=== PATIENT | female | born 1980 | race Caucasian/White ===

== ENCOUNTER 2019-12-09 08:17 | Outpatient (CLI) | payer OTHER, SELFPAY ==
--- NOTE | 2020-01-02 00:54 | WPDHOMESLEEP ---
Sleep Study - Home Unattended Date of Study: 12/09/19 Ordering Provider: Cheryl Cheng MD Interpreting Physician: Cheryl Cheng MD Home Sleep Study Type: Apnea Link Air Height: 1.6 m Weight: 107.501 kg Body Mass Index: 42.0 Neck Circumference (inches): 15 [place]: 12 Reason for Sleep Study Hypersomnolence, poor quality sleep, loud snoring Sleep History Armand Henderson is a 39 year-old female with a history of loud snoring. she wakes up between 2 and 4 times per night. Her sleep is restless. During the daytime she has difficulty concentrating due to lack of good sleep. This all started about 7 years ago. She wakes up throughout the night including in the digital developer hours. She rarely awakens at night with heartburn, belching or coughing. She occasionally awakens from sleep feeling short of breath. She frequently has trouble sleeping with a cold. She rarely gasps for breath at night. She occasionally has breathing problems at night observed by others. She occasionally sweats excessively at night. She does not notice her heart pounding or beating irregularly at night. She occasionally falls asleep during the day but never involuntarily. She does not fall asleep while driving. She does not have loss of muscle tone with strong emotion. She rarely has daytime difficulties due to excessive sleepiness. 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 She rarely feels paralyzed on waking or falling asleep. She rarely has vivid dreamlike scenes upon awakening or falling asleep. She is not afraid to go to sleep. She occasionally has nightmares, occasionally remembers her dreams, has racing thoughts, feelings of sadness depression and anxiety. She does not have muscular tension. She constantly notices parts of her body jerking and she frequently kicks at night. She rarely has crawling and aching feelings in her legs at night and rarely has leg pain at night. She occasionally has morning jaw pain. She frequently grinds her teeth during sleep. she never is bothered by pain during the day and is not awakened by pain at night. She rarely wakes up feeling stiff in the morning with sore achy muscles or pain in the neck and spine. Normal bedtime is 9:00 p.m. falling asleep within 15-20 minutes. She wakes 2-4 times at night and stays awake for 10 minutes or so when she wakes up. While awake she will go to the bathroom, check on her children or look at her telephone. She wakes in the morning between 5:00 a.m. and 6:30 a.m.. On weekends she goes to bed by 11:00 p.m. and wakes by 730 in the morning. On weekends she also has alcoholic beverages or a dessert. She does not take naps. A short nap is not refreshing. She is usually drowsy in the morning for 1 hour or longer. She feels better in the morning compared to other times of day. Habits: She smoked years ago. She does consume caffeine and drinks 3-5 alcoholic beverages on the weekend only. No recreational drugs. FORMERLY [facility] Past Medical History Medical History Anxiety Asthma Fractures GERD (gastroesophageal reflux disease) Healthy adult Hypersomnolence Hypothyroidism Major depressive disorder Moderate persistent asthma Surgical History Surgical History H/O dilation and curettage No history of previous surgery Family History Family History Mother Diabetes mellitus, Onset Age: 68 Hypertension, Onset Age: 68 Cerebrovascular accident, Onset Age: 68 Father Family history of malignant neoplasm of stomach, Onset Age: 65 Other Family history of malignant neoplasm Social History Social History Smoking status: Former smoker Smoking end date: 02/06/07 Alcohol intake: current Substance use: never Medications Home Medications Medica
[2020-01-02 01:16] VITALS: BMI 42.0
== END 2019-12-09 08:18 | disposition home or self-care (01) ==
LOC: ANHCSM 08:29
PROVIDERS: PCP Internal Medicine; Visit Provider Internal Medicine Critical Care Medicine
DX: G47.33 Obstructive sleep apnea (adult) (pediatric) (principal)
CPT/HCPCS: 95806

== ENCOUNTER 2020-01-30 10:58 | Emergency (ER) | payer OTHER, SELFPAY ==
[2020-01-30] MEDS: EPINEPHrine HCL INJ 1 MG/ML AMPUL IM (11:03)
[2020-01-30 11:08] VITALS: BP 141/124; PULSE 114; RESP 18; TEMP 37.5; O2SAT 96
[2020-01-30] MEDS: diphenhydrAMINE HCl CAP 25 MG CAPSULE 50 MG PO (11:08)
--- NOTE | 2020-01-30 11:12 | ED.ALLEREA ---
HPI - Allergic Reaction General Stated complaint: alllergric reaction Time Seen by Provider: 01/30/20 10:58 Source: patient and RN notes reviewed Mode of arrival: ambulatory Limitations: no limitations History of Present Illness HPI narrative: 39-year-old female presents concern for allergic reaction. Reports just prior to arrival she noticed trouble breathing, swollen lips, swollen tongue with acute onset. She is unsure of any triggering food, medicine, substance. She does not have history of allergies. Reports swollen eyes, blurry vision. MD complaint: allergic reaction Exposure: unknown Related Data Home Medications Medication Instructions Recorded Confirmed duloxetine 60 mg capsule,delayed 60 mg PO DAILY 12/31/18 01/09/20 release sprinkle duloxetine 30 mg capsule,delayed 30 mg PO DAILY 11/20/19 01/09/20 release bupropion HCl 150 mg tablet,12 hr 150 mg PO DAILY 01/09/20 01/09/20 sustained-release Allergies Allergy/AdvReac Type Severity Reaction Status Date / Time latex Allergy Intermediate HIVES AND Verified 07/31/19 09:59 ITCHING Review of Systems Review of Systems: ROS unobtainable: Yes unobtainable due to medical condition PMFSH Past Medical History Medical History Anxiety Asthma Fractures GERD (gastroesophageal reflux disease) Healthy adult Hypersomnolence Hypothyroidism Major depressive disorder Moderate persistent asthma Surgical History Surgical History H/O dilation and curettage No history of previous surgery Family History Family History Mother Diabetes mellitus, Onset Age: 68 Hypertension, Onset Age: 68 Cerebrovascular accident, Onset Age: 68 Father Family history of malignant neoplasm of stomach, Onset Age: 65 Other Family history of malignant neoplasm Social History Social History Smoking status: Former smoker Smoking end date: 02/06/07 Alcohol intake: current Substance use: never Comments At time of signature, agree with nursing past medical, surgical, social and family history. There is no relevant family history pertinent to the presenting complaint Exam Narrative: Exam Narrative: GENERAL: in acute distress. HEAD: Normocephalic, EYES: PERRLA, conjunctivae clear, right lower lid edema ENT: Nares clear. Mucous membranes moist. Lip edema, tongue edema, uvular edema NECK: Supple. CHEST: Mildly, tachypneic clear to auscultation. HEART: Fast rate, cap refill less than 3 seconds normal peripheral pulses. SKIN: Warm, dry NEURO: Alert and oriented x3. PSYCH: Anxious, tearful Course Course Emergency Course: Patient is aware, understands and agrees to transfer to emergency department. Portions of this record may have been created with voice recognition software Vital Signs Vital signs: Reviewed. Emergency situation, patient educated on blood pressure Transfer Transfered to: [place] Transportation: ALS Transfer rationale: Allergic reaction Accepting physician: Dr. Nava MDM - Allergic Reaction MDM Narrative Medical decision making narrative: Patient's exam warrants further evaluation in the emergency department. Patient transferred via EMS to [facility]. Differential Diagnosis Differential diagnosis: Likely anaphylaxis, allergic reaction and angioedema Critical Care Time Critical Care Time Critical Care Time: Yes Total Critical Care Time: 15 Discharge Plan Discharge Clinical Impression: Allergic reaction Qualifiers: Encounter type: initial encounter Qualified Code(s): T78.40XA - Allergy, unspecified, initial encounter Patient Disposition: Acute Care Hospital Condition: Stable Prescriptions: No Action duloxetine 60 mg capsule, delayed rel sprinkle 60 mg PO DAILY RF: 0
== END 2020-01-30 11:11 | disposition short-term general hospital (02) ==
PROVIDERS: Emergency Provider Nurse Practitioner
DX: T78.3XXA Angioneurotic edema, initial encounter (principal); R22.0 Localized swelling, mass and lump, head; H02.842 Edema of right lower eyelid; T78.40XA Allergy, unspecified, initial encounter; X58.XXXA Exposure to other specified factors, initial encounter; Z87.891 Personal history of nicotine dependence; J45.909 Unspecified asthma, uncomplicated; K21.9 Gastro-esophageal reflux disease without esophagitis; E03.9 Hypothyroidism, unspecified; F41.9 Anxiety disorder, unspecified; F32.9 Major depressive disorder, single episode, unspecified
CPT/HCPCS: 96372; 99215; A9270; G0463; J0171

== ENCOUNTER 2020-01-30 11:32 | Emergency (ER) | payer OTHER, SELFPAY ==
[2020-01-30 11:30] VITALS: BP 153/91; PULSE 99; RESP 15; TEMP 36.8; O2SAT 100
--- NOTE | 2020-01-30 11:58 | ED.ALLEREA ---
HPI - Allergic Reaction General Chief complaint: Allergic Reaction <Padmini Hendricks PA-C - Last Filed: 01/30/20 14:19> Stated complaint: Allergic Reaction <TARIK Brandon Last Filed: 01/30/20 14:19> Time Seen by Provider: 01/30/20 11:41 <TARIK Brandon Last Filed: 01/30/20 14:19> Source: patient <TARIK Brandon Last Filed: 01/30/20 14:19> Mode of arrival: EMS <TARIK Brandon Last Filed: 01/30/20 14:19> Limitations: no limitations <TARIK Brandon Last Filed: 01/30/20 14:19> History of Present Illness HPI narrative: This is a 39-year-old female that presents the emergency department for allergic reaction. Reports she had just gotten home from the grocery store. Does not report any new foods, soaps, lotions, or medications. Reports she started to note itching of her eyes. Her hands then started to itch. She noticed her eyes were swollen and red. She started to feel like she was having an asthma flare so took her albuterol and inhaled steroid with little relief. She then felt like her lips and tongue were starting to get swollen so reported to urgent care. Was given epinephrine and Benadryl and sent to the ED for further evaluation and monitoring. Reports she is feeling much better now. Swelling is improving and she does not feel short of breath. <TARIK Brandon Last Filed: 01/30/20 14:19> Related Data Home medications: Home Medications Medication Instructions Recorded Confirmed duloxetine 60 mg capsule,delayed 60 mg PO DAILY 12/31/18 01/09/20 release sprinkle duloxetine 30 mg capsule,delayed 30 mg PO DAILY 11/20/19 01/09/20 release bupropion HCl 150 mg tablet,12 hr 150 mg PO DAILY 01/09/20 01/09/20 sustained-release <TARIK Brandon Last Filed: 01/30/20 14:19> Allergies/adverse reactions: Allergies Allergy/AdvReac Type Severity Reaction Status Date / Time latex Allergy Intermediate HIVES AND Verified 07/31/19 09:59 ITCHING <Padmini Hendricks PA-C - Last Filed: 01/30/20 14:19> Review of Systems Review of Systems: Narrative: CONSTITUTIONAL: Denies fever EYES: Reports redness and swelling ENT: Reports rhinorrhea, congestion CARDIOVASCULAR: Reports edema. RESPIRATORY: Denies dyspnea. SKIN: Reports rash and itching. <Padmini Hendricks PA-C - Last Filed: 01/30/20 14:19> All systems reviewed & are unremarkable except as noted in HPI and below <Padmini Hendricks PA-C - Last Filed: 01/30/20 14:19> PMFSH Past Medical History Medical History: Medical History Anxiety Asthma Fractures GERD (gastroesophageal reflux disease) Healthy adult Hypersomnolence Hypothyroidism Major depressive disorder Moderate persistent asthma <Padmini Hendricks PA-C - Last Filed: 01/30/20 14:19> Surgical History Surgical History: Surgical History H/O dilation and curettage No history of previous surgery <Padmini Hendricks PA-C - Last Filed: 01/30/20 14:19> Family History Family History: Family History Mother Diabetes mellitus, Onset Age: 68 Hypertension, Onset Age: 68 Cerebrovascular accident, Onset Age: 68 Father Family history of malignant neoplasm of stomach, Onset Age: 65 Other Family history of malignant neoplasm <Padmini Hendricks PA-C - Last Filed: 01/30/20 14:19> Social History Social History: Social History Smoking status: Former smoker Smoking end date: 02/06/07 Alcohol intake: current Substance use: never Gender identity (if verbalized by the patient): Female <TARIK Brandon Last Filed: 01/30/20 14:19> Exam Narrative: Exam Narrative: GENERAL: Well-appearing, well-nourished, and in no acute distr
[2020-01-30] MEDS: FAMOTIDINE 20 MG/2 ML VIAL IV PUSH (12:21)
[2020-01-30] MEDS: methylPREDNISolone SOD SUCC 125 MG VIAL IV PUSH (12:21)
[2020-01-30 13:40] VITALS: BP 148/77; PULSE 90; RESP 16; O2SAT 99
== END 2020-01-30 14:33 | disposition home or self-care (01) ==
PROVIDERS: Emergency Provider General Practice; PCP Internal Medicine
DX: T78.2XXA Anaphylactic shock, unspecified, initial encounter (principal); T78.3XXA Angioneurotic edema, initial encounter; K21.9 Gastro-esophageal reflux disease without esophagitis; E03.9 Hypothyroidism, unspecified; J45.30 Mild persistent asthma, uncomplicated; F41.9 Anxiety disorder, unspecified; F32.9 Major depressive disorder, single episode, unspecified; Z87.891 Personal history of nicotine dependence
CPT/HCPCS: 96374; 96375; 99284; J2930

== ENCOUNTER 2020-02-21 10:19 | Emergency (ER) | payer OTHER, SELFPAY ==
[2020-02-21] VITALS (15 sets, daily range): BP systolic 123–153; BP diastolic 76–86; PULSE 78–112; RESP 8–33; TEMP 36.6; O2SAT 100
--- NOTE | 2020-02-21 11:30 | PC.NURSE ---
received report from Cat RN. patient here with allergic reaction. has facial swelling. c/o some difficulty breathing on arrival. states she had similar episode on 01/30/20. was seen in this ED. referred to her PCP for referral for peer support specialist. just saw here PCP last week. has appointment with peer support specialist in March. unknown cause of allergic reaction. no dyspnea noted now. no tongue swelling. does have mild facial swelling noted around eyes. patient appears restless. provider also in room. patient states she is also having rectal pain. hx of anal fissure. provider aware. patient to restroom per her request.
[2020-02-21] MEDS: diphenhydrAMINE HCl INJ 50 MG/ML VIAL 25 MG IV PUSH (11:43)
[2020-02-21] MEDS: FAMOTIDINE 20 MG/2 ML VIAL IV PUSH (11:43)
[2020-02-21] MEDS: methylPREDNISolone SOD SUCC 125 MG VIAL IV PUSH (11:43)
--- NOTE | 2020-02-21 11:45 | PC.NURSE ---
patient medicated as ordered. on warp placer. has call light in reach. asking for either treatment now for anal fissure and rectal pain or for prescription. cannot remember what she was given previously. provider is aware. will continue to monitor after meds for allergic reaction.
--- NOTE | 2020-02-21 13:06 | PC.NURSE ---
resting on stretcher. appears comfortable. facial swelling resolved. on library monitor. waiting for further orders from provider vs disposition.
--- NOTE | 2020-02-21 13:56 | PC.NURSE ---
feels better. facial swelling resolved. provider discussed OTC treatment for anal fissure with patient. ready for discharge.
--- NOTE | 2020-02-21 14:15 | PC.NURSE ---
provider at bedside.
--- NOTE | 2020-02-21 20:45 | ED.GENADULT ---
HPI - General Adult General Chief complaint: Allergic Reaction Stated complaint: ALLERGIC REACTION Time Seen by Provider: 02/21/20 11:01 Source: patient Mode of arrival: ambulatory Limitations: no limitations History of Present Illness HPI narrative: Patient presents with chief complaint of evaluation for facial and throat swelling that began just prior to arrival. Patient states that she presented to this emergency department in the past due to an unknown reaction and was prescribed EpiPen and so she used it prior to coming to the emergency department. Patient states she does notice some improvement in her symptoms. but feels that they may be slowly coming back. 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 Patient denies chest pain or shortness of breath at this time. Patient reports feeling some swelling to her face and itching to her throat. Patient states she has evaluated her environment and cannot figure out the cause of her symptoms. Related Data Home Medications Medication Instructions Recorded Confirmed albuterol sulfate [Ventolin HFA] INHALATION 02/21/20 bupropion HCl mg PO 02/21/20 duloxetine mg PO 02/21/20 duloxetine mg PO 02/21/20 epinephrine 02/21/20 fluticasone propion-salmeterol inh INHALATION 02/21/20 phentermine mg 02/21/20 Allergies Allergy/AdvReac Type Severity Reaction Status Date / Time latex Allergy Intermediate HIVES AND Verified 02/21/20 12:05 ITCHING Review of Systems Review of Systems: Narrative: CONSTITUTIONAL: Denies fever, chills, or sweats. EYES: Denies visual changes, redness, or discharge. ENT: Reports throat swelling denies rhinorrhea, congestion, or otalgia. CARDIOVASCULAR: Denies chest pain, palpitations, or edema. RESPIRATORY: Denies cough or dyspnea. GASTROINTESTINAL: Denies abdominal pain, nausea, vomiting, or diarrhea. GENITOURINARY: Denies dysuria or hematuria. SKIN: Reports facial swelling denies rash or itching. MUSCULOSKELETAL: Denies back pain, joint pain, or myalgia. NEUROLOGIC: Denies headache, numbness, dizziness, or weakness. PSYCHIATRIC: Denies anxiety or depression. FORMERLY [facility], [facility] Past Medical History Medical History Anxiety Asthma Fractures GERD (gastroesophageal reflux disease) Healthy adult Hypersomnolence Hypothyroidism Major depressive disorder Moderate persistent asthma Surgical History Surgical History H/O dilation and curettage No history of previous surgery Family History Family History Mother Diabetes mellitus, Onset Age: 68 Hypertension, Onset Age: 68 Cerebrovascular accident, Onset Age: 68 Father Family history of malignant neoplasm of stomach, Onset Age: 65 Other Family history of malignant neoplasm Social History Social History Smoking status: Former smoker Smoking end date: 02/06/07 Alcohol intake: current Substance use: never Gender identity (if verbalized by the patient): Female Exam Narrative: Exam Narrative: GENERAL: Well-appearing, well-nourished, and in no acute distress. HEAD: Normocephalic, atraumatic. There is swelling of patient's face especially around her lips and eyes. EYES: PERRLA and EOMI. ENT: Nares clear, no rhinorrhea or epistaxis. Mucous membranes moist. Oropharynx without tonsillar hypertrophy exudate or other lesions. Bilateral TMs pearly garcia nonbulging. Patient is able to speak and swallow without difficulty. NECK: Supple. No adenopathy or masses. CHEST: Clear to auscultation. No respiratory distress. No wheezes rales or rhonchi HEART: Regular rate and rhythm. EXTREMITIES: Normal range of motion. No edema. SKIN: Warm, dry, no rash. DEMETRIUS
== END 2020-02-21 14:26 | disposition home or self-care (01) ==
PROVIDERS: Emergency Provider Emergency Medicine; PCP Internal Medicine
DX: T78.40XA Allergy, unspecified, initial encounter (principal); J45.40 Moderate persistent asthma, uncomplicated; K21.9 Gastro-esophageal reflux disease without esophagitis; E03.9 Hypothyroidism, unspecified; F32.9 Major depressive disorder, single episode, unspecified; F41.9 Anxiety disorder, unspecified; Z87.891 Personal history of nicotine dependence
CPT/HCPCS: 96374; 96375; 99284; J1200; J2930

== ENCOUNTER 2020-11-04 11:12 | Outpatient (CLI) | payer OTHER, SELFPAY ==
--- NOTE | ~2020-11-04 | XR_ITS ---
EXAMINATION: XR chest 2V EXAM DATE: 11/04/2020 11:23 INDICATION: R06.02 - Shortness of breath, recent bronchitis. TECHNIQUE: Frontal and lateral projections of the chest obtained and reviewed. Comparison is made to prior examination from 01/26/2019. FINDINGS: The lungs are clear. There are no pleural effusions. The cardiomediastinal silhouette is within normal limits. There is no pneumothorax suspected. The bones and soft tissues are unremarkab le. IMPRESSION: No acute cardiopulmonary findings. Reviewed, dictated and finalized at location A.
== END 2020-11-04 11:13 | disposition home or self-care (01) ==
LOC: ANHIMG 11:15
PROVIDERS: PCP Internal Medicine; Visit Provider Clinical Nurse Specialist
DX: R06.02 Shortness of breath (principal)
CPT/HCPCS: 71046

== ENCOUNTER 2021-01-25 08:09 | Outpatient (CLI) | payer OTHER, SELFPAY ==
--- NOTE | ~2021-01-25 | CT_ITS ---
EXAMINATION: CT sinus wo con DATE: 01/25/2021 08:24 INDICATION: Hypertrophy of the nasal terminates. Chronic sinusitis. TECHNIQUE: Computed tomography (CT) of the paranasal sinuses was performed without intravenous contra st. The dose-length product was 294.13 mGy-cm. Automated exposure control and iterative reconstructio n technique were employed. COMPARISON: No prior studies for comparison. FINDINGS: There is mucosal thickening of the frontal, ethmoid, sphenoid and maxillary sinuses. There is mild mucoperiosteal reaction in the maxillary sinuses. Rightward nasal septal deviation. Ostiomeat al units are occluded by soft tissue. Mastoids are pneumatized. IMPRESSION: 1. Moderate chronic pansinusitis. Reviewed, dictated and finalized at location A. UND [employer]
== END 2021-01-25 08:10 | disposition home or self-care (01) ==
LOC: ANHIMG 08:11
PROVIDERS: PCP Internal Medicine; Visit Provider Otolaryngology
DX: J34.3 Hypertrophy of nasal turbinates (principal); J32.4 Chronic pansinusitis; J34.2 Deviated nasal septum; R09.82 Postnasal drip; R09.81 Nasal congestion; R51.9 Headache, unspecified; R44.8 Other symptoms and signs involving general sensations and perceptions
CPT/HCPCS: 70486

== ENCOUNTER 2021-02-18 08:29 | Outpatient (CLI) | payer OTHER, SELFPAY ==
[2021-02-18 08:55] LABS: Basophils Percent Auto 0.3 % (0.2-1.2); Eosinophils Absolute Auto 0.1 K/mm3 (0-0.3); Eosinophils Percent Auto 1.7 % (0-4.4); Hematocrit 41.7 % (37.0-47.0); Hemoglobin 13.9 g/dL (12.0-15.0); Immature Granulocyte Absolute 0.02 K/mm3 (0.00-0.031); Immature Granulocyte Percent A 0.3 % (0-0.5); Lymphocytes Absolute Auto 1.58 K/mm3 (0.9-3.2); Lymphocytes Percent Auto 22.6 % (18.3-44.2); Mean Corpuscular HGB Conc 33.3 g/dl (32-36); Mean Corpuscular Volume 90.1 fl (80-100); Mean Platelet Volume 8.9 fl (7.4-10.4); Monocytes Absolute Auto 0.4 K/mm3 (0.1-0.6); Monocytes Percent Auto 5.4 % (2.6-8.5); Neutrophils Absolute Auto 4.9 K/mm3 (1.3-6.7); Neutrophils Percent Auto 69.7 % (45.5-73.1); Platelet Count Result 295 k/mm3 (150-375); Red Blood Count 4.63 M/mm3 (4.2-5.4); Red Cell Distribution Width 13.7 % (11.5-14.5)
[2021-02-18 09:09] LABS: Alanine Aminotransferase 23 U/L (4-35); Albumin Level 4.4 g/dL (3.5-5.1); Alkaline Phosphatase 105 U/L (38-126); Anion Gap 7 mmol/L (8-16); Aspartate Amino Transferase 29 U/L (14-36); Bilirubin,Total 0.7 mg/dL (0.2-1.3); Blood Urea Nitrogen 12 mg/dL (7-17); Calcium 9.1 mg/dL (8.4-10.2); Carbon Dioxide 28 mmol/L (22-30); Chloride 101 mmol/L (98-107); Cholesterol 208 mg/dL (0-200); Estimated Glomerular Filt Rate > 60; Glucose 99 mg/dL (65-110); HDL Direct 63 mg/dL; Sodium 136 mmol/L (137-145); Triglycerides 123 mg/dL (<150)
[2021-02-18 09:22] LABS: LDL Cholesterol Direct 104 mg/dL
[2021-02-18 10:31] LABS: Vitamin D 25 Hydroxy 34.9 ng/mL
[2021-02-18 12:19] LABS: Erythrocyte Sedimentation Rate 14 mm/hr (0-20)
== END 2021-02-18 08:30 | disposition home or self-care (01) ==
LOC: ANHLAB 08:33
PROVIDERS: PCP Internal Medicine; Visit Provider Clinical Nurse Specialist
DX: R09.89 Other specified symptoms and signs involving the circulatory and respiratory systems (principal); J45.40 Moderate persistent asthma, uncomplicated; Z13.220 Encounter for screening for lipoid disorders; E55.9 Vitamin D deficiency, unspecified
CPT/HCPCS: 36415; 80053; 80061; 82306; 84443; 85025; 85652; 86038

== ENCOUNTER 2021-03-19 00:46 | Day surgery (SDC) | payer OTHER, SELFPAY ==
[2021-03-15 09:38] VITALS: BMI 41.6
--- NOTE | 2021-03-15 09:49 | PC.NURSE ---
Report to the Outpatient Waiting Room, entrance under the green pavilion located off [facility], at time 0830 on date 03/19/21. OR Time: 1030. - You will be asked a series of questions to screen for COVID 19 for your protection. - A mask is required within the hospital. - No visitors are allowed at this time. Preoperative COVID Testing Requirements: TO EMAIL COPY OF COVID CARD No COVID Test needed if: (proof is required; if not received patient will have Rapid Test prior to entry) - Patient has received COVID Vaccine at least 14 days prior to procedure date or - Patient has positive COVID test result within last 90 days of surgery date. COVID Test needed if above criteria is not met Patients may have clear liquids (water, carbonated beverages, clear teas, apple juice) until 3 hours prior to surgery with a maximum of 20 ounces. - No food from midnight until time of surgery Take the following medications with a SIP of water the morning of surgery: INHALERS, BUPROPION, DULOXETINE Medications to discontinue per physician: N/A Date to take last dose: N/A Please no make-up, nail icelandic, hairspray, perfume, deodorant, or body powder the day of surgery. No jewelry (including any body piercings) or valuables the day of surgery, leave them at home. Please take a shower or bath the night before, or the morning of, surgery with an antibacterial soap. Wear comfortable, loose fitting clothing. - Jewelry must be removed prior to entering the operating room. Rings and piercings that are not removed may be cut off. - The hospital will not accept responsibility for valuables. - Please leave all valuables, including medications, at home the day of surgery. If you are going home after surgery, a licensed charter coach driver must drive you home. - NO public transportation without another adult. - We recommend that an adult stay with you for 24 hours following discharge. - We also recommend that you do not drive, make important decision, drink alcoholic beverages, or take any drugs that were not prescribed by your health care provider for at least 24 hours after your discharge time. Follow any additional instructions given to you from your surgeon. Telephone instructions given to BRINA ESCAMILLA and asked if any additional questions and then verbalized understanding. Patient advised to call surgeon office or pre surgery nurse liaison [phone] if any additional questions.
--- NOTE | 2021-03-18 12:36 | PM.IMHP ---
H&P: HPI History of Present Illness Date/Time: 03/18/21 12:36 Chief Complaint: Nasal obstruction nasal congestion septal deviation turbinate hypertrophy chronic sinusitis Narrative: patient presents for planned surgical procedures. No change in symptoms no change in medical history. Review of Systems Constitutional: Constitutional: Denies fatigue, Denies fever(s) and Denies lethargy Eyes: Eyes: Denies blurry vision and Denies change in vision ENT: Reports as per HPI Cardiovascular: Cardiovascular: Denies chest pain Respiratory: Respiratory: Denies cough Endocrine: Endocrine: Denies fatigue Hematologic/Lymphatic: Hematologic/Lymphatic: Denies easy bleeding, Denies easy bruising and Denies lymphadenopathy Allergic/Immunologic: Allergic/Immunologic: Denies seasonal rhinorrhea [facility] Past Medical History Medical History Anxiety Asthma Fractures GERD (gastroesophageal reflux disease) Healthy adult Hypersomnolence Hypothyroidism Major depressive disorder Moderate persistent asthma Surgical History Surgical History H/O dilation and curettage No history of previous surgery Family History Family History Mother Diabetes mellitus, Onset Age: 68 Hypertension, Onset Age: 68 Cerebrovascular accident, Onset Age: 68 Father Family history of malignant neoplasm of stomach, Onset Age: 65 Other Family history of malignant neoplasm Social History Social History (Updated 02/24/21 @ 14:26 by Adrianna Mills) Social History: Caffeine-Coffee daily Years smoked: 10 Smoking status: Former smoker Tobacco type: cigarettes and e-cigarettes/vaping Smoking end date: 02/06/11 Additional smoking assessment comments: QUIT VAPING 2018 Alcohol intake: current Alcohol use details: 3/MONTH Substance use: never Substance use type: does not use Gender identity (if verbalized by the patient): Female Spiritual care concerns: No Meds Home Medications and Allergies Home Medications Medication Instructions Recorded Confirmed Type inhalational spacing device #1 each 07/31/19 01/05/21 Rx duloxetine 30 mg PO DAILY 02/21/20 03/15/21 History duloxetine 60 mg PO DAILY 02/21/20 03/15/21 History epinephrine [EpiPen 2-Samy] 0.3 mg IM ONCE #1 ea 02/21/20 03/15/21 Rx famotidine [Pepcid] 20 mg PO BID #20 tablet 02/21/20 03/15/21 Rx fexofenadine 60 mg tablet 180 mg PO DAILY 08/06/20 03/15/21 History albuterol sulfate 90 mcg/actuation See Rx Instructions .ROUTE 09/14/20 03/15/21 Rx aerosol inhaler .COMPLEX #54 gram bupropion HCl 100 mg tablet,12 hr 100 mg PO DAILY 11/18/20 03/15/21 History sustained-release linaclotide 145 mcg capsule 145 mcg PO DAILY #90 cap 02/24/21 03/15/21 Rx liraglutide (weight loss) 3 mg/0.5 3 mg SUBCUT DAILY #15 ml 02/24/21 03/15/21 Rx mL (18 mg/3 mL) subcut pen injector fluticasone propion-salmeterol 2 puff INHALATION BID 03/15/21 03/15/21 History [Advair HFA] Allergies Allergy/AdvReac Type Severity Reaction Status Date / Time NSAIDS (Non-Steroidal Allergy Unknown Verified 03/17/21 15:33 Anti-Inflamma Exam Const: General: cooperative, healthy appearing, comfortable, well developed and alert HENMT: Head: normal to inspection, normocephalic and atraumatic Ears: hearing grossly normal bilaterally, external ears normal, TM's normal bilaterally and EAC's normal General nose exam: Normal external nose present, Normal nares present and Other nasal findings present ( Septal deviation turbinate hypertrophy) Face and sinus: normal facial exam Mouth: Yes Normal oral and palatal mucosa present, Yes lip normal, Yes tongue normal, Yes oropharynx normal and Yes moist mucous membranes Teeth and gingiva: dentition normal and gingiva normal Throat: posterior oropharynx normal, tonsils normal an
--- NOTE | 2021-03-18 13:12 | WPDANESEPPF ---
Anes - Initial Pre Proc Eval Procedure: Operation Date: 03/19/21 10:30 Proposed Procedures p Image Guided Endoscopic Bilateral Maxillary Antrostomy, Bilateral Total Ethmoidectomy, Bilateral Sphenoidotomy, Bilateral Frontal Sinusotomy, Bilateral Inferior Turbinectomy with Outfracture, - David Fay MD s Endoscopic Septoplasty - David Fay MD Date/Time: 03/18/21 13:12 Surgeon: David Fay MD Pre Op Diagnosis: chronic sinusitis Patient Data Age: 40 Gender: F Height: 1.61 m Weight: 108.41 kg Allergies Allergy/AdvReac Type Severity Reaction Status Date / Time NSAIDS (Non-Steroidal Allergy Unknown Verified 03/19/21 09:30 Anti-Inflamma Home Medications Medication Instructions Recorded Confirmed Type inhalational spacing device #1 each 07/31/19 01/05/21 Rx duloxetine 30 mg PO DAILY 02/21/20 03/19/21 History duloxetine 60 mg PO DAILY 02/21/20 03/19/21 History epinephrine [EpiPen 2-Samy] 0.3 mg IM ONCE #1 ea 02/21/20 03/15/21 Rx famotidine [Pepcid] 20 mg PO BID #20 tablet 02/21/20 03/19/21 Rx fexofenadine 60 mg tablet 180 mg PO DAILY 08/06/20 03/19/21 History albuterol sulfate 90 mcg/actuation See Rx Instructions .ROUTE 09/14/20 03/15/21 Rx aerosol inhaler .COMPLEX #54 gram bupropion HCl 100 mg tablet,12 hr 100 mg PO DAILY 11/18/20 03/19/21 History sustained-release linaclotide 145 mcg capsule 145 mcg PO DAILY #90 cap 02/24/21 03/19/21 Rx liraglutide (weight loss) 3 mg/0.5 3 mg SUBCUT DAILY #15 ml 02/24/21 03/19/21 Rx mL (18 mg/3 mL) subcut pen injector fluticasone propion-salmeterol 2 puff INHALATION BID 03/15/21 03/19/21 History [Advair HFA] Patient hx anesthesia problems: none Family hx anesthesia problems: none Results Review: All pre-operative results and documents have been reviewed as part of the pre-operative evaluation. [facility] Past Medical History Medical History Anxiety Asthma Fractures GERD (gastroesophageal reflux disease) Healthy adult Hypersomnolence Hypothyroidism Major depressive disorder Moderate persistent asthma Surgical History Surgical History H/O dilation and curettage No history of previous surgery Family History Family History Mother Diabetes mellitus, Onset Age: 68 Hypertension, Onset Age: 68 Cerebrovascular accident, Onset Age: 68 Father Family history of malignant neoplasm of stomach, Onset Age: 65 Other Family history of malignant neoplasm Social History Social History (Updated 02/24/21 @ 14:26 by Adrianna Mills) Social History: Caffeine-Coffee daily Years smoked: 10 Smoking status: Former smoker Tobacco type: cigarettes and e-cigarettes/vaping Smoking end date: 02/06/11 Additional smoking assessment comments: QUIT VAPING 2019 Alcohol intake: current Alcohol use details: 3/MONTH Substance use: never Substance use type: does not use Living arrangements: with family Gender identity (if verbalized by the patient): Female Spiritual care concerns: No Anes - Eval Final PreProcedure Day of Procedure 03/18/21 13:12 Patient weight: morbidly obese Heart: regular rate and rhythm Lungs: clear to auscultation and normal air movement Airway: Mallampati scale class II Neurological: alert and oriented Last oral intake: >/= 8 hours ASA classification: III Emergent: no Anesthetic plan: proceed Anesthesia type and monitoring: general ETT and standard monitoring Results Review: All pre-operative results and documents have been reviewed as part of the pre-operative evaluation. Informed Consent: The patient's anesthetic plan and its attendant risks and benefits were discussed with the patient/family/POA. Questions were solicited and answers provided to the satisfaction of the patient/family/POA.
[2021-03-19] VITALS (13 sets, daily range): BP systolic 118–158; BP diastolic 66–94; PULSE 81–120; RESP 15–17; TEMP 36.2; O2SAT 94–100
--- NOTE | 2021-03-19 07:11 | WPDHPUPDATE1 ---
History and Physical Update Update Date/Time: 03/19/21 07:11 History and Physical has been reviewed, including an updated exam of the patient. There are NO changes in the patient's condition. Risks, benefits, and alternatives have been discussed and questions answered. Patient agrees to proceed with procedure.
[2021-03-19] MEDS: ACETAMINOPHEN 500 MG TABLET 1000 MG PO (09:50)
[2021-03-19] MEDS: LACTATED RINGERS 1,000 ML 30 ML IV CONT (09:59)
[2021-03-19] MEDS: ceFAZolin 2 GM/D5W 50 ML 2 GM/50 ML BAG IVPB (10:23)
[2021-03-19] MEDS: OXYMETAZOLINE HCL 0.05% NAS 15 ML BTL (*BKC) 1 SPRAY NASAL ×2 (10:33→12:12)
[2021-03-19] MEDS: MUPIROCIN 2% OINT 22 GM TUBE 1 APPLIC EACH NARE (12:20)
[2021-03-19] MEDS: LIDO 1%/EPINEPHRINE 1:100,000 50 ML VIAL 20 ML INFILTRATE (12:31)
[2021-03-19] MEDS: MIDAZOLAM HCL (*CRX) 2 MG/2 ML VIAL 1 MG IV PUSH (13:17)
--- NOTE | 2021-03-19 13:26 | SUR.PHASEI ---
pt was very anxious and c/o sob this nurse called md brunson and he ordered for versed. After this nurse gave pt the medicine pt started desat in 80s. this nurse turned pt simple face mask to 8L. pt edvin came to back side
--- NOTE | 2021-03-19 13:27 | P.OP_ITS ---
Procedure Note - Detailed Date of Procedure 03/19/21 Pre-op Diagnosis chronic sinusitis, nasal obstruction, nasal congestion, septal deviation, turbinate hypertrophy Post-op Diagnosis same Procedure Performed 1. Endoscopic assisted septoplasty 2. Inferior turbinate reduction submucosally with outfracture 3. Image guided bilateral endoscopic maxillary antrostomy 4. Endoscopic bilateral image guided total ethmoidectomy 5. Image guided bilateral endoscopic frontal sinusotomy 6. Endoscopic image guided bilateral sphenoidotomy Surgeon David Fay MD Anesthesia general Indications See above Findings Left very narrow frontal outflow able to barely open it several mm. Excess bleeding well controlled postop at the end of the case. Polypoid edema throughout the sinonasal passages right septal deviation corrected postop turbinate hypertrophy corrected postop Description of Procedure Patient correctly identified consent verified. Patient brought operating room. Time-out performed. Anesthesia induced endotracheal tube secured. Image guidance initiated and set up. Second time-out performed. Her site patient prepped and draped for procedure 2nd time-out performed. Afrin-soaked pledgets placed bilaterally os of 5 minutes. 0 degree endoscope utilized left-sided Santos incision made in the anterior nasal septum following the injection of 10 cc of 1% lidocaine 1000 parts epinephrine. Two CC check did anterior heads and bodies of the inferior turbinates. Local injected bilaterally in the septum. Left-sided nasal septal flap elevated using 7 Croatian suction osteotome utilized to transect septum right-sided then elevated using 7 Croatian suction small right perforation on the left. Deviated septum using combination Antonio Urban forceps osteotome Asiya forceps. Septum now straight. Right-sided very accessible. All of the sinus surgery was bilateral and bilateral and performed in the exact same fashion with exact same findings unless stated otherwise. Maxillary antrostomies performed with combination of Brook[place] to medialized the middle turbinate double ball tip probe to open backbiter straight through cut microdebrider to open fully. Total ethmoidectomies performed with image g shannon Kerrison micro debrider and straight through cut. Ethmoidectomy performed from skull base to orbit to septum. Sphenoidotomy performed with Brooklet to locate os 1 and 3 Kerrison as. As well as microdebrider. Hemostasis achieved using intermittent application of warm sterile saline as an irrigant as well as the intermittent application of Afrin-soaked pledgets. Frontal sinusotomies performed 70 degree scope Cobra and Hosemann punch. Right was easily cannulated widely opened. The left was very small of the frontal beak was very obstructive. Was only open several mm to ensure no damage occurred to the posterior table and brain. Turbinates reduced submucosally bilaterally using a 2 mm blade on the microdebrider. Elma incision on the left septum closed using 2 interrupted 5 0 fast gut sutures. No pack placed in the bilateral middle meati. Hemostasis was excellent. Maldonado splints covered in mupirocin were placed bilaterally and sutured anteriorly using 3-0 interrupted excuse me 3-0 mattressed suture. Tota blood loss approximately 100 cc. I performed all dictated portions of the procedure. Estimated Blood Loss 100 Drains No Packing Yes (novapak) Pathology none sent Complications No immediate complications Condition stable Disposition PACU
--- NOTE | 2021-03-19 13:38 | SUR.PHASEI ---
md pardo came to see pt and said pt was crackly on her bottom right and said to order a breathing tx. RT now at bedside.
[2021-03-19] MEDS: ALBUTEROL SULFATE NEB 2.5 MG/3 ML INH INHALATION (13:53)
[2021-03-19] MEDS: fentaNYL CITRATE INJ (*CRX) 100 MCG/2 ML VIAL 25 MCG IV PUSH (14:01)
--- NOTE | 2021-03-19 14:03 | SUR.PHASEI ---
md jose came by to see pt and update family
[2021-03-19] MEDS: oxyCODONE HCL (*CRX) 5 MG TAB IR PO (14:58)
== END 2021-03-19 15:45 | disposition home or self-care (01) ==
PROVIDERS: PCP Internal Medicine; Visit Provider Otolaryngology
PROC: (CPT 30520; principal; 2021-03-19 10:30)
PROC: (CPT 30520; 2021-03-19 10:30)
DX: J34.3 Hypertrophy of nasal turbinates (principal); J34.2 Deviated nasal septum; R09.82 Postnasal drip; J32.9 Chronic sinusitis, unspecified; R09.81 Nasal congestion; R51.9 Headache, unspecified; R44.8 Other symptoms and signs involving general sensations and perceptions; Z79.51 Long term (current) use of inhaled steroids; Z87.891 Personal history of nicotine dependence; F41.9 Anxiety disorder, unspecified; K21.9 Gastro-esophageal reflux disease without esophagitis; E03.9 Hypothyroidism, unspecified; F32.9 Major depressive disorder, single episode, unspecified; J45.909 Unspecified asthma, uncomplicated
CPT/HCPCS: 30520; 30140; 61782; 31256; 31253; 31257; 94640; A9270; J0330; J0690; J1100; J1170; J2001; J2250; J2405; J2704; J3010; J7120

== ENCOUNTER 2021-05-27 07:36 | Outpatient (CLI) | payer OTHER, SELFPAY ==
--- NOTE | 2021-06-07 14:19 | WPDHOMESLEEP ---
Sleep Study - Home Unattended Date of Study: 05/27/21 Ordering Provider: Lindsey Chua DO Interpreting Provider: Lindsey Chua DO Home Sleep Study Type: Watch PAT Height: 1.63 m Weight: 108.862 kg Body Mass Index: 41.1 Neck Circumference (inches): 14.5 [place]: 13 Reason for Sleep Study Loud snoring, daytime somnolence Sleep History The patient is a 40-year-old female with asthma, anxiety, depression, GERD, seasonal allergies and history of tobacco use that had a home sleep test ordered by her primary care for evaluation of sleep apnea. 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 She rarely awakens from sleep short of breath. She rarely awakens at night with heartburn, belching or cough. She constantly snores loud enough that others complain. She frequently has trouble sleeping when she has a cold. She denies waking up gasping for air throughout night. She constantly has breathing problems at night observed by herself or others. She constantly sweats excessively at night. She denies having heart palpitations or irregular heartbeats during the night. He rarely falls asleep during the day and never while driving. She denies sleep paralysis and cataplexy. She rarely has trouble at school or work due to sleepiness. She rarely experiences vivid dreamlike scenes upon awakening or falling asleep. She rarely has nightmares. She occasionally remembers her dreams. She frequently has thoughts racing through her mind. She occasionally feels sad or depressed. She frequently has anxiety. She frequently has muscular tension. She frequently notices parts of her body jerk. She constantly kicks during the night. She occasionally has crawling and aching feelings in her legs and occasionally has leg pain during the night. She frequently grinds her teeth during sleep and occasionally awakens with a morning jaw pain. She is occasionally bothered by pain during the day but rarely awakened by pain during the night. She frequently wakes up feeling stiff in the morning. She frequently wakes up with sore or achy muscles. She frequently wakes up with pain in the neck, spine or other joints. She goes to bed between 830 and 9:00 p.m. on both weekdays and weekends. It takes her 30 minutes to fall asleep. She wakes up 4 times throughout the night to use the restroom. If she has difficulty falling asleep, she will play on her phone. It can take 2 minutes or greater than 2 hours for her to fall asleep. She wakes up between 5 and 6:00 a.m. on both weekdays and weekends. She typically gets 7-8 hours of sleep per night. She will stay in bed for a few minutes after waking up in the morning. She currently lives with her and 2 children. She does not consume any caffeinated beverages within 2 hours of bedtime. She does not engage in physical exercise before bedtime. She will watch television before falling asleep. She does not take naps in afternoon or the evening. She drinks 2 caffeinated beverages per day. She will drink 3 alcoholic beverages per month. She quit smoking cigarettes over 10 years ago. She denies recreational drug use. [facility] Past Medical History Medical History Anxiety Asthma Fractures GERD (gastroesophageal reflux disease) Healthy adult Hypersomnolence Hypothyroidism Major depressive disorder Moderate persistent asthma Surgical History Surgical History H/O dilation and curettage H/O sinus surgery 03/2021 No history of previous surgery Family History Family History Mother Diabetes mellitus, Onset Age: 68 Hypertension, Onset Age: 68 Cerebrovascular accident, Onset Age: 68 Father Family history of malignant neoplasm of stomach, Onset Age: 65 Other Family history of malignant neoplasm Social H
[2021-06-07 14:34] VITALS: BMI 41.1
== END 2021-06-07 11:53 | disposition home or self-care (01) ==
LOC: ANHCSM 07:36
PROVIDERS: PCP Internal Medicine; Visit Provider Family Medicine
DX: G47.33 Obstructive sleep apnea (adult) (pediatric) (principal)
CPT/HCPCS: 95800

== ENCOUNTER 2021-07-06 08:41 | Outpatient (CLI) | payer OTHER, SELFPAY ==
--- NOTE | 2021-07-06 08:47 | ECHO_ITS ---
Patient Info Name: Armand Henderson Age: 41 years : 1980 Gender: Female Ht: 63 in Wt: 240 lbs BSA: 2.26 m2 HR: 78 bpm BP: 144 / 90 mmHg Heart Rhythm: Sinus Rhythm Technical Quality: Good Exam Date: 07/06/2021 9:07 AM Exam Location: [facility] Patient Status: Outpatient Admit Date: 07/06/2021 Staff Ordering Physician: Lindsey Chua DO Wet End Supervisor: Marci Knight RDCS Attending Provider: Lindsey Chua DO Referring Physician: Harshil NEVES; Exam Type: CA echo doppler color flow Study Info Indications - Primary central sleep apnea Complete two-dimensional, color flow and Doppler transthoracic echocardiogram is performed. Summary 1. Complete two-dimensional, color flow and Doppler transthoracic echocardiogram is performed. 2. Left ventricular chamber dimension is normal. 3. Left ventricular systolic function is normal, estimated at 60-65%. 4. The left ventricular diastolic function is grade I diastolic dysfunction. 5. E/e' 8 is minimally elevated. 6. There is trace mitral valve regurgitation. 7. No pulmonary hypertension, estimated pulmonary arterial systolic pressure is 26 mmHg. Left Ventricle E/e' 8 is minimally elevated. Left ventricular chamber dimension is normal. Left ventricular systolic function is normal, estimated at 60-65%. The left ventricular diastolic function is grade I diastolic dysfunction. Right Ventricle Right ventricular chamber dimension is normal. Right ventricular systolic function is normal and with normal TAPSE 1.8 cm. Left Atria Left atrial chamber dimension is mildly enlarged. Right Atria Right atrial chamber dimension is normal. Aortic Valve The aortic valve is trileaflet. There is no aortic valve stenosis. There is no aortic valve regurgitation. Pulmonic Valve There is no pulmonic regurgitation. Mitral Valve There is no mitral valve stenosis. There is trace mitral valve regurgitation. Tricuspid Valve There is no tricuspid valve regurgitation. No pulmonary hypertension, estimated pulmonary arterial systolic pressure is 26 mmHg. Pericardium/Pleural There is no pericardial effusion. Inferior Vena Cava Normal inferior vena cava with >50% collapse upon inspiration consistent with normal right atrial pressure, 5 mmHg. Aorta The aortic root size at the sinus of Valsalva is normal. Left Ventricular Outflow Tract Name Value Normal LVOT 2D LVOT Diameter 2.0 cm LVOT Doppler LVOT Peak Gradient 3 mmHg LVOT Mean Gradient 1 mmHg LVOT VTI 20 cm LVOT VTI/AV VTI Ratio 0.7 LVOT Stroke Volume 64 ml LVOT CO 3.8 l/min LVOT CI 1.7 l/min/m2 Pulmonic Valve Name Value Normal RVOT Doppler
== END 2021-07-06 08:42 | disposition home or self-care (01) ==
LOC: ANHCARD 08:43
PROVIDERS: PCP Internal Medicine; Visit Provider Family Medicine
DX: G47.31 Primary central sleep apnea (principal)
CPT/HCPCS: 93306

== ENCOUNTER 2021-09-18 07:14 | Outpatient (CLI) | payer OTHER, SELFPAY ==
[2021-09-18 07:59] LABS: Basophils Percent Auto 0.4 % (0.2-1.2); Eosinophils Absolute Auto 0.1 K/mm3 (0-0.3); Eosinophils Percent Auto 1.3 % (0-4.4); Hemoglobin 13.6 g/dL (12.0-15.0); Immature Granulocyte Absolute 0.02 K/mm3 (0.00-0.031); Immature Granulocyte Percent A 0.3 % (0-0.5); Lymphocytes Absolute Auto 1.44 K/mm3 (0.9-3.2); Lymphocytes Percent Auto 21.2 % (18.3-44.2); Mean Corpuscular HGB Conc 31.6 g/dl (32-36); Mean Corpuscular Hemoglobin 29.1 pg (26-34); Mean Corpuscular Volume 91.9 fl (80-100); Mean Platelet Volume 8.4 fl (7.4-10.4); Monocytes Absolute Auto 0.5 K/mm3 (0.1-0.6); Monocytes Percent Auto 6.8 % (2.6-8.5); Neutrophils Absolute Auto 4.8 K/mm3 (1.3-6.7); Platelet Count Result 281 k/mm3 (150-375); Red Blood Count 4.68 M/mm3 (4.2-5.4); Red Cell Distribution Width 15.2 % (11.5-14.5); White Blood Count 6.8 K/mm3 (4.5-10.0)
[2021-09-18 08:16] LABS: Alanine Aminotransferase 20 U/L (6-35); Albumin Level 4.2 g/dL (3.5-5.1); Alkaline Phosphatase 98 U/L (38-126); Anion Gap 6 mmol/L (8-16); Aspartate Amino Transferase 26 U/L (14-36); Bilirubin,Total 0.5 mg/dL (0.2-1.3); Blood Urea Nitrogen 15 mg/dL (7-17); Calcium 9.3 mg/dL (8.4-10.2); Carbon Dioxide 34 mmol/L (22-30); Chloride 96 mmol/L (98-107); Cholesterol 215 mg/dL (0-200); Estimated Glomerular Filt Rate > 60; Glucose 101 mg/dL (65-110); HDL Direct 69 mg/dL; Sodium 136 mmol/L (137-145); Triglycerides 83 mg/dL (<150)
[2021-09-18 08:17] LABS: Hemoglobin A1C 5.4 % (<5.7)
[2021-09-18 08:29] LABS: LDL Cholesterol Direct 104 mg/dL
[2021-09-18 09:10] LABS: Free T4 Free Thyroxine 0.71 ng/mL (0.78-2.19)
[2021-09-18 09:13] LABS: Vitamin D 25 Hydroxy 58.2 ng/mL
== END 2021-09-18 07:15 | disposition home or self-care (01) ==
LOC: ANHLAB 07:16
PROVIDERS: PCP Internal Medicine; Visit Provider Family Medicine
DX: R53.83 Other fatigue (principal); D64.9 Anemia, unspecified; R73.9 Hyperglycemia, unspecified; E55.9 Vitamin D deficiency, unspecified; Z13.220 Encounter for screening for lipoid disorders
CPT/HCPCS: 36415; 80053; 80061; 82306; 82728; 83036; 84439; 84443; 85025

== ENCOUNTER 2021-10-28 07:21 | Outpatient (CLI) | payer OTHER, SELFPAY ==
--- NOTE | 2021-11-16 17:29 | WPDSLEEPSTUD ---
Sleep Study Date of Study: 10/28/21 Ordering Provider: Lindsey Chua DO Interpreting Physician: Lindsey Chua DO Sleep Study Type: CPAP Titration Height: 1.63 m Weight: 114.305 kg Body Mass Index: 43.2 Neck Circumference (inches): 15 [place]: 13 Reason for Sleep Study The patient had a home sleep test on 05/27/2021 that showed an AHI of 19.4 with desaturation down to 86%. She also had a central apnea index of 5. Sleep History The patient is a 41-year-old female with asthma, anxiety, depression, GERD, seasonal allergies and history of tobacco use that had a home sleep test ordered by her primary care for evaluation of sleep apnea.? 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 She rarely awakens from sleep short of breath.? She rarely awakens at night with heartburn, belching or cough.? She constantly snores loud enough that others complain.? She frequently has trouble sleeping when she has a cold.? She denies waking up gasping for air throughout night.? She constantly has breathing problems at night observed by herself or others.? She constantly sweats excessively at night.? She denies having heart palpitations or irregular heartbeats during the night.? He rarely falls asleep during the day and never while driving.? She denies sleep paralysis and cataplexy.? She rarely has trouble at school or work due to sleepiness.? She rarely experiences vivid dreamlike scenes upon awakening or falling asleep.? She rarely has nightmares.? She occasionally remembers her dreams.? She frequently has thoughts racing through her mind.? She occasionally feels sad or depressed.? She frequently has anxiety.? She frequently has muscular tension.??She frequently notices parts of her body jerk.? She constantly kicks during the night.? She occasionally has crawling and aching feelings in her legs and occasionally has leg pain during the night.??She frequently grinds her teeth during sleep and occasionally awakens with a morning jaw pain.? She is occasionally bothered by pain during the day but rarely awakened by pain during the night.? She frequently wakes up feeling stiff in the morning.? She frequently wakes up with sore or achy muscles.? She frequently wakes up with pain in the neck, spine or other joints.? She goes to bed between 830 and 9:00 p.m. on both weekdays and weekends.? It takes her 30 minutes to fall asleep.? She wakes up 4 times throughout the night to use the restroom.? If she has difficulty falling asleep, she will play on her phone.? It can take 2 minutes or greater than 2 hours for her to fall asleep.? She wakes up between 5 and 6:00 a.m. on both weekdays and weekends.? She typically gets 7-8 hours of sleep per night.? She will stay in bed for a few minutes after waking up in the morning.? She currently lives with her and 2 children.? She does not consume any caffeinated beverages within 2 hours of bedtime.? She does not engage in physical exercise before bedtime.? She will watch television before falling asleep.? She does not take naps in afternoon or the evening.? She drinks 2 caffeinated beverages per day.? She will drink 3 alcoholic beverages per month.? She quit smoking cigarettes over 10 years ago.? She denies recreational drug use. [facility] Past Medical History Medical History Anxiety Asthma Fractures GERD (gastroesophageal reflux disease) Healthy adult Hypersomnolence Hypothyroidism Major depressive disorder Moderate persistent asthma Surgical History Surgical History H/O dilation and curettage H/O gynecological procedure mirena iud removal / reinsertion 01/07/2021 H/O sinus surgery 03/2021 No history of previous surgery Family History Family History Mother Diabetes mellitus, Onset Age: 68 Hypertension, Onset Age: 68 Cerebrovascular accident, On
[2021-11-16 17:38] VITALS: BMI 43.2
== END 2021-10-29 05:27 | disposition home or self-care (01) ==
PROVIDERS: PCP Family Medicine; Visit Provider Family Medicine
DX: G47.33 Obstructive sleep apnea (adult) (pediatric) (principal); G25.81 Restless legs syndrome
CPT/HCPCS: 95811

== ENCOUNTER 2022-02-28 11:38 | Outpatient (CLI) | payer OTHER, SELFPAY ==
[2022-02-28 16:57] LABS: Basophils Absolute Auto 0.1 K/mm3 (0.0-0.1); Basophils Percent Auto 0.4 % (0.2-1.2); Eosinophils Absolute Auto 0.4 K/mm3 (0-0.3); Eosinophils Percent Auto 3.4 % (0-4.4); Hematocrit 41.2 % (37.0-47.0); Hemoglobin 13.6 g/dL (12.0-15.0); Immature Granulocyte Absolute 0.03 K/mm3 (0.00-0.031); Immature Granulocyte Percent A 0.3 % (0-0.5); Lymphocytes Absolute Auto 1.99 K/mm3 (0.9-3.2); Lymphocytes Percent Auto 16.8 % (18.3-44.2); Mean Corpuscular Hemoglobin 28.7 pg (26-34); Mean Corpuscular Volume 86.9 fl (80-100); Mean Platelet Volume 9.3 fl (7.4-10.4); Monocytes Percent Auto 8.5 % (2.6-8.5); Neutrophils Absolute Auto 8.4 K/mm3 (1.3-6.7); Neutrophils Percent Auto 70.6 % (45.5-73.1); Platelet Count Result 314 k/mm3 (150-375); Red Blood Count 4.74 M/mm3 (4.2-5.4); Red Cell Distribution Width 14.8 % (11.5-14.5); White Blood Count 11.9 K/mm3 (4.5-10.0)
[2022-02-28 17:02] LABS: Alanine Aminotransferase 24 U/L (6-35); Albumin Level 3.7 g/dL (3.5-5.1); Alkaline Phosphatase 93 U/L (38-126); Anion Gap 2 mmol/L (8-16); Aspartate Amino Transferase 29 U/L (14-36); Bilirubin,Total 0.4 mg/dL (0.2-1.3); Blood Urea Nitrogen 11 mg/dL (7-17); Calcium 9.9 mg/dL (8.4-10.2); Carbon Dioxide 34 mmol/L (22-30); Chloride 103 mmol/L (98-107); Estimated Glomerular Filt Rate > 60; Glucose 98 mg/dL (65-110); Potassium 3.5 mmol/L (3.4-5.0); Sodium 139 mmol/L (137-145)
== END 2022-02-28 11:39 | disposition home or self-care (01) ==
LOC: ANHGOSHLAB 11:40
PROVIDERS: PCP Internal Medicine; Visit Provider Nurse Practitioner
DX: R11.2 Nausea with vomiting, unspecified (principal)
CPT/HCPCS: 36415; 80053; 85025

== ENCOUNTER → 2022-02-28 11:48 | Outpatient (CLI) | payer OTHER, SELFPAY ==
--- NOTE | ~2022-02-28 | XR_ITS ---
EXAMINATION: XR chest 2V DATE: 02/28/2022 11:57 INDICATION: Cough and fever and shortness of breath. TECHNIQUE: Frontal and lateral views of the chest were obtained. COMPARISON: Chest 2 views 11/04/2020 FINDINGS: The chest demonstrates clear lungs without pneumonia, pleural effusion, or pneumothorax. Th e heart size is normal. IMPRESSION: 1. No acute cardiopulmonary disease. Reviewed, dictated and finalized at location A. [facility] MANAGER
== END ==
PROVIDERS: PCP Family Medicine; Visit Provider Nurse Practitioner
DX: R05.9 Cough, unspecified (principal); R50.9 Fever, unspecified; R06.02 Shortness of breath
CPT/HCPCS: 71046

== ENCOUNTER → 2022-12-19 15:08 | Outpatient (CLI) | payer OTHER, SELFPAY ==
--- NOTE | ~2022-12-19 | MM_ITS ---
EXAMINATION: MM screening gladys BI w sayra HISTORY: Screening mammogram TECHNIQUE: Craniocaudal and mediolateral oblique 3-D tomosynthesis images were obtained and synthetic 2-D images were generated. CAD analysis was submitted and interpreted. COMPARISON: No prior mammogram is available for comparison at this institution. BREAST PARENCHYMAL COMPOSITION: There are scattered areas of fibroglandular density. FINDINGS: There is no evidence of suspicious mass, calcification, or architectural distortion to sugg est malignancy in either breast. There has been no suspicious interval change. IMPRESSION: 1. No mammographic evidence of malignancy. 2. Recommend routine screening mammography in one year. BI-RADS Category 1: Negative Reviewed, dictated and finalized at location B. SURE DISPATCHER
== END ==
PROVIDERS: PCP Obstetrics & Gynecology; Visit Provider Obstetrics & Gynecology
DX: Z12.31 Encounter for screening mammogram for malignant neoplasm of breast (principal)
CPT/HCPCS: 77063; 77067

== ENCOUNTER 2023-12-18 00:47 | Day surgery (SDC) | payer OTHER, SELFPAY ==
[2023-12-11 14:23] VITALS: BMI 31.8
--- NOTE | 2023-12-11 14:23 | PC.NURSE ---
Report to the Outpatient Waiting Room, entrance under the green pavilion located off [facility], at time _0800_ on date _[id number]_. Planned Procedure Time: _1000_.? Time changes happen often and if your time is changed the preop area will call you the afternoon before. - You and your visitor will be asked to self-screen and do not enter if you have any COVID symptoms. Please call surgeon if you need to reschedule. - A mask is optional within the hospital at this time. Patients may have clear liquids (water, carbonated beverages, clear teas, apple juice) until 3 hours prior to surgery with a maximum of 20 ounces. - No food from midnight until time of surgery and no smoking Take only the following medications with a SIP of water on the morning of surgery: ___Advair, Duloxetine, Thyroid and if needed may use Albuterol DO NOT STOP ANY OF YOUR OTHER PRESCRIPTION MEDICATIONS PRIOR TO SURGERY EXCEPT THE FOLLOWING Medications to discontinue per physician ___All vitamins Date to take last ikhl__[id number]____ Please no make-up, nail macedonian, hairspray, perfume, deodorant, or body powder the day of surgery.? No jewelry (including any body piercings) or valuables the day of surgery, leave them at home.? Please take a shower or bath the night before, or the morning of, surgery with an antibacterial soap.? Wear comfortable, loose fitting clothing.? - Jewelry must be removed prior to entering the operating room.? Rings and piercings that are not removed may be cut off. - The hospital will not accept responsibility for valuables.? - Please leave all valuables, including medications, at home the day of surgery. If you are going home after surgery, a licensed motor vehicle escort driver must drive you home.? - NO public transportation without another adult if you receive anesthesia. - We recommend that an adult stay with you for 24 hours following discharge. - We also recommend that you do not drive, make important decision, drink alcoholic beverages, or take any drugs that were not prescribed by your health care provider for at least 24 hours after your discharge time. Follow any additional instructions given to you from your surgeon. Telephone instructions given to __Amber__and asked if any additional questions and then verbalized understanding. Patient advised to call surgeon office or pre surgery nurse liaison [phone] if any additional questions.
--- NOTE | 2023-12-15 11:35 | P.HP_ITS ---
H&P: HPI History of Present Illness Date/Time: 12/15/23 11:35 Chief Complaint: AUB Narrative: Allison is a 43yo P2102, LMP 11/19/23 who presents for surgery for AUB. She has a Mirena IUD in place since 01/2021. She has irregular bleeding with it, is light most of the time for 5 days, then has 4-5 days of heavy, followed by another few days of spotting; feels like she's bleeding for 1.5-2wks out of the month-- this has been going on for a couple years now. She does have some cramping when she's bleeding heavier-- OIL FIELD PUMPER US in 2021 showed IUD in the correct location. She tried OCPs for 2-3 months in 2022 and reports that she did not feel like herself at all; felt horrible, didn't help the bleeding either. She is having PMS symptoms but it has significantly changed since she tried the OCPs. Now feeling like she has 2 bad PMS days (1 week apart), and does not want to try any other kinds of hormones. She is seeing psych and now taking duloxetine (was previously on wellbutrin and that did not help either). She is wanting all hormones out of her body; wanting the IUD out, but concerned about contraception/return of her heavy cycles. Review of Systems Constitutional: Constitutional: Denies chills, Denies fever(s) and Denies headache(s) Eyes: Eyes: Denies change in vision ENT: Denies dizziness and Denies headache(s) Cardiovascular: Cardiovascular: Denies chest pain and Denies dyspnea Respiratory: Respiratory: Denies cough and Denies dyspnea Gastrointestinal: Gastrointestinal: Denies abdominal pain and Denies change in stool character Genitourinary: Genitourinary: Reports abnormal menses, Reports menorrhagia, Denies pelvic pain, Denies vaginal discharge, Denies vaginal odor and Denies vaginal pruritus Neurologic: Denies dizziness and Denies headache(s) Psychiatric: Psychiatric: Denies anxiety and Denies depression PMF Past Medical History Medical History (Updated 11/23/23 @ 10:28 by Nu Worrell MD) ADHD Anxiety Asthma Fractures GERD (gastroesophageal reflux disease) Healthy adult Hypersomnolence Hypothyroidism Major depressive disorder Moderate persistent asthma Surgical History Surgical History H/O dilation and curettage H/O gynecological procedure mirena iud removal / reinsertion 01/07/2021 H/O sinus surgery 03/2021 No history of previous surgery Family History Family History Mother Diabetes mellitus, Onset Age: 68 Hypertension, Onset Age: 68 Cerebrovascular accident, Onset Age: 68 Father Family history of malignant neoplasm of stomach, Onset Age: 65 Other Family history of malignant neoplasm Social History Social History (Updated 11/23/23 @ 09:52 by Liam Ledezma MA) Social History: Caffeine-Coffee daily Years smoked: 5 Smoking status: Former smoker Tobacco type: cigarettes Smoking end date: 12/10/06 Additional smoking assessment comments: occasional vapes Alcohol intake: current Alcohol use details: 3/MONTH Substance use: current Substance use type: hallucinogens Do You Feel Safe in your Home?: Yes Lack of Transportation: No Lack of Food: Never True Current Housing: I Have Housing Concerned About Future Housing: No Difficulty Paying Gas/Electric Bills: No Difficulty Paying for Meds: YES Currently Unemployed: No Education: Associate Degree Difficulty w/ Childcare or Family Care: Decline to Answer Living arrangements: with family Occupation/Education: occupation Gender identity (if verbalized by the patient): Female Sexual Orientation (if Verbalized by the Patient): Straight or Heterosexual Spiritual care concerns: No Meds Home Medications and Allergies Home Medications Medication Instructions Recorded Confirmed Type inhalational spacing device #1 ea 07/31/19 12/11/23 Rx (Aerochamber MV spacer) duloxetine 30 mg capsule,delayed 30 mg PO DAILY 02/21/20 12/11/23 History release duloxetine 60 mg capsule,delayed 60 mg PO DAILY 02/21/20 12/11/23 History release epinephrine 0.3 mg/0.3 mL 0.3 mg (0.3 mL) IM ONCE #1 ea 02/21/20 12/11/23 Rx injection, auto-injector (EpiPen 2-Samy) famotidine 20 mg tablet (Pepcid) 20 mg PO BID #20 tabs 02/21/20 12/11/23 Rx fexofenadine 60 mg tablet (Kourtney 180 mg PO DAILY 08/06/20 12/11/23 History Allergy) albuterol sulfate 90 mcg/actuation See Rx Instructions .Route 09/14/20 12/11/23 Rx aerosol inhaler (Ventolin HFA) .COMPLEX #54 grams fluticasone propionate 115 2 puff inhalation BID 03/15/21 12/11/23 History mcg-salmeterol 21 mcg/actuation HFA inhaler (Advair HFA) levonorgestrel 21 mcg/24 hr (up to 1 device intrauterine ONCE 09/09/21 12/11/23 History 8 years) 52 mg intrauterine device (Mirena) alcohol swabs (Alcohol Pads) 1 pad topical .COMPLEX #100 ea 10/04/21 12/11/23 Rx pen needle, diabetic 32 gauge x #50 ea 10/04/21 12/11/23 Rx 5/32 (1st Tier Unifine Pentips Plus) ferrous sulfate 325 mg (65 mg 325 mg PO DAILY #90 tabs 11/17/21 12/11/23 Rx iron) tablet ascorbic acid (vitamin C) 1,000 mg 1 g PO DAILY 02/28/22 12/11/23 History capsule zinc gluconate 30 mg tablet 60 mg PO DAILY 02/28/22 12/11/23 History linaclotide 145 mcg capsule 145 mcg PO DAILY #90 caps 12/20/22 12/11/23 Rx (Linzess) dextroamphetamine-amphetamine 10 10 mg PO DAILY 11/23/23 12/11/23 History mg tablet lisdexamfetamine 30 mg capsule 30 mg PO DAILY 11/23/23 12/11/23 History thyroid (pork) 60 mg tablet (SHOE LINING FITTER 60 mg PO DAILY 11/23/23 12/11/23 History Thyroid) vitamin K2 45 mcg capsule 45 mcg PO DAILY 11/23/23 12/11/23 History cholecalciferol (vitamin D3) 125 125 mcg PO DAILY 12/11/23 12/11/23 History mcg (5,000 unit) tablet (Vitamin D3) magnesium citrate,mag oxide 250 mg 500 mg PO DAILY 12/11/23 12/11/23 History capsule Allergies Allergy/AdvReac Type Severity Reaction Status Date / Time NSAIDS (Non-Steroidal Allergy Angioedema Verified 12/11/23 14:12 Anti-Inflamma Exam Const: General: cooperative, healthy appearing, comfortable and no acute distress Orientation/consciousness: patient oriented x3 Resp: Effort & Inspection: normal respiratory effort Cardio: Rate: regular rate GI: Inspection: normal to inspection GI Palp: No abdominal tenderness and Yes Soft to palpation : Other: deferred to OR Skin: General skin exam: normal color Neuro: General: patient oriented x3 Extrem: General: normal to inspection Psych: Appearance: grossly normal Affect: normal affect Attitude: cooperative Assessment and Plan Assessment and plan (1) Abnormal uterine bleeding (AUB): Code(s): N93.9 - Abnormal uterine and vaginal bleeding, unspecified Status: Acute Plan - Proceed with Laparoscopic bilateral salpingectomy, HSC, D&C, IUD removal, and endometrial ablation - Risks and benefits discussed in detail
[2023-12-18] VITALS (9 sets, daily range): BP systolic 96–129; BP diastolic 35–84; PULSE 70–93; RESP 10–18; TEMP 36.3–36.5; O2SAT 97–100
--- NOTE | 2023-12-18 07:13 | WPDHPUPDATE1 ---
History and Physical Update Update Date/Time: 12/18/23 07:13 History and Physical has been reviewed, including an updated exam of the patient. There are NO changes in the patient's condition. Risks, benefits, and alternatives have been discussed and questions answered. Patient agrees to proceed with Laparoscopic bilateral salpingectomy, HSC, D&C, IUD removal, and endometrial ablation.
[2023-12-18] MEDS: LACTATED RINGERS 1,000 ML 30 ML IV CONT ×2 (08:45→11:48)
[2023-12-18] MEDS: ACETAMINOPHEN 500 MG TABLET 1000 MG PO (08:45)
[2023-12-18 09:38] LABS: BEDSIDEPREGUCG Negative (Negative)
--- NOTE | 2023-12-18 10:16 | WPDANESEPPF ---
Anes - Initial Pre Proc Eval Procedure: Operation Date: 12/18/23 10:00 Proposed Procedures p Hysteroscopy Dilation and Curettage, Darlin Endometrial Ablation, Bilateral Laparoscopic Salpingectomy - Nu Worrell MD Date/Time: 12/18/23 10:16 Surgeon: Nu Worrell MD Pre Op Diagnosis: Abnormal Uterine Bleeding Patient Data Age: 43 Gender: F Height: 1.63 m Weight: 81.9 kg Last Vital Signs Temp 36.3 C L 12/18/23 09:00 Pulse 93 12/18/23 09:00 Resp 16 12/18/23 09:00 BP 96/35 L 12/18/23 09:00 Pulse Ox 100 12/18/23 09:00 O2 Del Method Room Air 12/18/23 09:00 Allergies Allergy/AdvReac Type Severity Reaction Status Date / Time NSAIDS (Non-Steroidal Allergy Angioedema Verified 12/18/23 09:30 Anti-Inflamma Home Medications Medication Instructions Recorded Confirmed Type inhalational spacing device #1 ea 07/31/19 12/11/23 Rx (Aerochamber MV spacer) duloxetine 30 mg capsule,delayed 30 mg PO DAILY 02/21/20 12/11/23 History release duloxetine 60 mg capsule,delayed 60 mg PO DAILY 02/21/20 12/11/23 History release epinephrine 0.3 mg/0.3 mL 0.3 mg (0.3 mL) IM ONCE #1 ea 02/21/20 12/11/23 Rx injection, auto-injector (EpiPen 2-Samy) famotidine 20 mg tablet (Pepcid) 20 mg PO BID #20 tabs 02/21/20 12/11/23 Rx fexofenadine 60 mg tablet (Kourtney 180 mg PO DAILY 08/06/20 12/11/23 History Allergy) albuterol sulfate 90 mcg/actuation See Rx Instructions .Route 09/14/20 12/11/23 Rx aerosol inhaler (Ventolin HFA) .COMPLEX #54 grams fluticasone propionate 115 2 puff inhalation BID 03/15/21 12/11/23 History mcg-salmeterol 21 mcg/actuation HFA inhaler (Advair HFA) levonorgestrel 21 mcg/24 hr (up to 1 device intrauterine ONCE 09/09/21 12/11/23 History 8 years) 52 mg intrauterine device (Mirena) alcohol swabs (Alcohol Pads) 1 pad topical .COMPLEX #100 ea 10/04/21 12/11/23 Rx pen needle, diabetic 32 gauge x #50 ea 10/04/21 12/11/23 Rx 5/32 (1st Tier Unifine Pentips Plus) ferrous sulfate 325 mg (65 mg 325 mg PO DAILY #90 tabs 11/17/21 12/11/23 Rx iron) tablet ascorbic acid (vitamin C) 1,000 mg 1 g PO DAILY 02/28/22 12/11/23 History capsule zinc gluconate 30 mg tablet 60 mg PO DAILY 02/28/22 12/11/23 History linaclotide 145 mcg capsule 145 mcg PO DAILY #90 caps 12/20/22 12/11/23 Rx (Linzess) dextroamphetamine-amphetamine 10 10 mg PO DAILY 11/23/23 12/11/23 History mg tablet lisdexamfetamine 30 mg capsule 30 mg PO DAILY 11/23/23 12/11/23 History thyroid (pork) 60 mg tablet (MAILROOM ASSISTANT 60 mg PO DAILY 11/23/23 12/11/23 History Thyroid) vitamin K2 45 mcg capsule 45 mcg PO DAILY 11/23/23 12/11/23 History cholecalciferol (vitamin D3) 125 125 mcg PO DAILY 12/11/23 12/11/23 History mcg (5,000 unit) tablet (Vitamin D3) magnesium citrate,mag oxide 250 mg 500 mg PO DAILY 12/11/23 12/11/23 History capsule acetaminophen 500 mg tablet 1,000 mg PO TID #60 tabs 12/18/23 Rx docusate sodium 100 mg capsule 100 mg PO BID #60 caps 12/18/23 Rx (Colace) ibuprofen 800 mg tablet 800 mg PO TID #40 tabs 12/18/23 Rx oxycodone 5 mg tablet 5 mg PO Q4H PRN pain #14 tabs 12/18/23 Rx Laboratory Tests 12/18/23 09:00 POC Urine HCG, Qual Negative (Negative) Patient hx anesthesia problems: none Family hx anesthesia problems: none Results Review: All pre-operative results and documents have been reviewed as part of the pre-operative evaluation. [facility] Past Medical History Medical History (Updated 12/17/23 @ 10:25 by Celso Vidales DO) ADHD Anxiety Asthma Depression Fractures GERD (gastroesophageal reflux disease) Healthy adult Hypersomnolence Hypothyroidism Major depressive disorder Migraine Moderate persistent asthma Obstructive sleep apnea Surgical History Surgical History (Updated 12/18/23 @ 08:49 by Nu Worrell MD) H/O dilation and curettage H/O gynecological procedure mirena iud removal / reinsertion 01/07/2021 H/O sinus surgery 03/2021 No history of previous surgery Family History Family History Mother Diabetes mellitus, Onset Age: 68 Hypertension, Onset Age: 68 Cerebrovascular accident, Onset Age: 68 Father Family history of malignant neoplasm of stomach, Onset Age: 65 Other Family history of malignant neoplasm Social History Social History (Updated 11/23/23 @ 09:52 by Liam Ledezma MA) Social History: Caffeine-Coffee daily Years smoked: 5 Smoking status: Former smoker Tobacco type: cigarettes Smoking end date: 12/10/06 Additional smoking assessment comments: occasional vapes Alcohol intake: current Alcohol use details: 3/MONTH Substance use: current Substance use type: hallucinogens Do You Feel Safe in your Home?: Yes Lack of Transportation: No Lack of Food: Never True Current Housing: I Have Housing Concerned About Future Housing: No Difficulty Paying Gas/Electric Bills: No Difficulty Paying for Meds: YES Currently Unemployed: No Education: Associate Degree Difficulty w/ Childcare or Family Care: Decline to Answer Living arrangements: with family Occupation/Education: occupation Gender identity (if verbalized by the patient): Female Sexual Orientation (if Verbalized by the Patient): Straight or Heterosexual Spiritual care concerns: No Anes - Eval Final PreProcedure Day of Procedure 12/18/23 10:16 Patient weight: obese Heart: regular rate and rhythm Lungs: clear to auscultation Airway: Mallampati scale class II Neurological: alert and oriented Last oral intake: >/= 8 hours ASA classification: III Emergent: no Anesthetic plan: proceed Anesthesia type and monitoring: general ETT and standard monitoring Results Review: All pre-operative results and documents have been reviewed as part of the pre-operative evaluation. Informed Consent: The patient's anesthetic plan and its attendant risks and benefits were discussed with the patient/family/POA. Questions were solicited and answers provided to the satisfaction of the patient/family/POA.
--- NOTE | 2023-12-18 11:19 | P.OP_ITS ---
Procedure Note - Detailed Date of Procedure 12/18/23 Pre-op Diagnosis Abnormal Uterine Bleeding Sterilization requested Post-op Diagnosis Same Procedure Performed Laparoscopic bilateral salpingectomy, IUD removal, hysteroscopy, D&C, and M inerva endometrial ablation Surgeon Nu Worrell MD Explosive Ordnance Disposal Technician Jim Anesthesia General and Local (10cc of 0.5% Marcaine w/ epi) Findings IUD strings visualized; IUD removed in whole and shown to OR staff; discarded. Multiparous cervix. Normal uterus. Normal bilateral fallopian tubes and ovaries. Normal uterine cavity; bilateral tubal ostia visualized. Good hemostasis at end of case. Uterus 8.5cm; cervix 4cm. Fluid deficit: 40cc Description of Procedure Allison was taken to the operating room where she was placed under general endotracheal anesthesia without complications. She was then prepped and draped in the usual sterile fashion in the dorsal lithotomy position with her legs in low Chong stirrups and her arms tucked at her side with a strap over her chest. A time-out was performed and no preoperative antibiotics were indicated. My attention was turned down below where her bladder was drained via straight catheterization. A bivalve speculum was then placed within the vagina where the cervix was easily identified. The IUD strings were visualized, and grasped with a ring forceps and the IUD was removed in whole without issue. The IUD was shown to the OR staff and discarded. The anterior lip of the cervix was grasped with a single-tooth tenaculum, the uterus was sounded, and a diagnostic uterine manipulator was placed without complications. My gloves were changed and my at tention was turned to her abdomen. An umbilical incision was made, and a 5 mm trocar was placed under direct visualization without complications. Once intra- abdominal placement was confirmed the abdomen was insufflated with carbon dioxide gas. She was then placed in Trendelenburg and two additional 5 mm ports were placed in the left and right lower quadrants under direct visualization without complications. The above findings were noted. The left fallopian tube was then elevated and the mesosalpinx was serially clamped, coagulated, transected using the LigaSure device until the proximal end of the fallopian tube was reached. The proximal end of the fallopian tube was cross clamped, coagulated and transected. The tube was then removed from the abdomen. The same procedure was then performed on the right side without any complications. Good hemostasis was noted. All instruments were removed from the abdomen. The insufflation was released and the trocars were removed. The 3 laparoscopic incision sites were reapproximated using 4-0 Monocryl and covered with Dermabond. The incisions were then infiltrated using 0.5% Marcaine with epinephrine. The uterine manipulator was removed. A bivalve speculum was placed within the vagina where the cervix was easily identified. The anterior lip of the cervix was grasped with a single-tooth tenaculum. The cervix was then serially dilated to allow for the hysteroscope. The hysteroscope was advanced into the uterine cavity with the above findings noted. A curettage was then performed until a good uterine cry was felt throughout the uterus. The Darlin endometrial ablation device was then placed within the endometrial cavity; set to 4cm. The procedure was performed per databases computer consultant's instructions in the correct manner without complications. Good hemostasis was noted. All instruments were removed from the vagina. Sponge, lap, instrument, and needle counts were correct at the end of the procedure. Patient was awoken from general anesthesia and taken to recovery with plans of same-day discharge home. Estimated Blood Loss 10 IV Fluids 900 Urine Output 15 Pathology Yes (left and right fallopian tubes, endometrial curettings) Complications No immediate complications Condition Stable Disposition Same day [facility] Billing Surgery - Charge Forward: Surgery Billing
[2023-12-18] MEDS: fentaNYL CITRATE INJ (*CRX) 100 MCG/2 ML VIAL 25 MCG IV PUSH ×4 (11:30→11:57)
--- NOTE | 2023-12-18 11:56 | SUR.PHASEI ---
1156: Simple mask removed.
[2023-12-18] MEDS: oxyCODONE HCL (*CRX) 5 MG TAB IR PO (12:36)
== END 2023-12-18 13:07 | disposition home or self-care (01) ==
PROVIDERS: PCP Internal Medicine; Visit Provider Obstetrics & Gynecology
PROC: 0UDB8ZZ Extraction of Endometrium, Via Natural or Artificial Opening Endoscopic (ICD-10-PCS; CPT 58558; principal; 2023-12-18 10:00)
DX: N93.9 Abnormal uterine and vaginal bleeding, unspecified (principal); Z30.2 Encounter for sterilization; F90.9 Attention-deficit hyperactivity disorder, unspecified type; E03.9 Hypothyroidism, unspecified; G47.33 Obstructive sleep apnea (adult) (pediatric); J45.40 Moderate persistent asthma, uncomplicated; K21.9 Gastro-esophageal reflux disease without esophagitis; F41.9 Anxiety disorder, unspecified; F32.A Depression, unspecified; Z79.51 Long term (current) use of inhaled steroids; F17.290 Nicotine dependence, other tobacco product, uncomplicated; E66.9 Obesity, unspecified; Z68.31 Body mass index [BMI] 31.0-31.9, adult
CPT/HCPCS: 58661; 58563; 58301; 88302; 88305; A9270; J1100; J2003; J2250; J2405; J2704; J3010; J7120

== ENCOUNTER 2024-11-04 09:51 | Outpatient (CLI) | payer OTHER, SELFPAY ==
--- NOTE | ~2024-11-04 | MM_ITS ---
EXAMINATION: MM screening [facility] BI w sayra HISTORY: Screening TECHNIQUE: Craniocaudal and mediolateral oblique 3-D tomosynthesis images were obtained and synthetic 2-D images were generated. CAD analysis was submitted and interpreted. COMPARISON: 12/19/2022 BREAST PARENCHYMAL COMPOSITION: Not dense: There are scattered areas of fibroglandular density. FINDINGS: The right breast is stable without evidence for malignancy. There is a developing asymmetry in the upper outer quadrant of the left breast. IMPRESSION: 1. Developing left breast asymmetry upper outer quadrant, middle third. 2. Additional mammographic views and possible breast ultrasound are recommended. BI-RADS Category 0: Incomplete: Needs additional imaging evaluation. Reviewed, dictated and finalized at location B. IMPRESSION: 1. Developing left breast asymmetry upper outer quadrant, middle third. 2. Additional mammographic views and possible breast ultrasound are recommended . BI-RADS Category 0: Incomplete: Needs additional imaging evaluation.
== END 2024-11-04 09:52 | disposition home or self-care (01) ==
PROVIDERS: PCP Obstetrics & Gynecology; Visit Provider Obstetrics & Gynecology
DX: Z12.31 Encounter for screening mammogram for malignant neoplasm of breast (principal); R92.8 Other abnormal and inconclusive findings on diagnostic imaging of breast
CPT/HCPCS: 77063; 77067

== ENCOUNTER 2024-11-29 09:43 | Outpatient (CLI) | payer OTHER, SELFPAY ==
--- OUTSIDE RECORDS SUMMARY | 2023-11-08 12:30 | XMS_ITS ---
Author Organization [facility] [place] ([address]) Address [address] [place] [address] Care Team Providers Care Locum Tenens Name Role Phone Ned Larry Primary Care Provider Unavailab Prashant Pearson Unavailable [phone] Rehan Coronel Unavailable [phone] REASON FOR VISIT SCIT - Traditional Schedule Allergy immunotherapy Encounters Encounter Location Date Provider Diagnosis [facility] [address] [place] [address] 11/08/2023 Rehan Coronel Allergic rhinitis du e to pollen J30.1 ; Allergic rhinitis due to animal (cat) (dog) hair and dander J30.81 ; Other allergic rhinitis J30.89 and Other chronic allergic conjunctivitis H10.45 Assessments Encounter Date Diagnosis (ICD Code) Assessment Notes Treatment Notes Treatment Clinical Notes Section Notes 11/08/2023 Allergic rhinitis due to pollen (ICD-10 - J30.1) 11/08/2023 Allergic rhinitis due to animal (cat) (dog) hair and dander (ICD-10 - J30.81) 11/08/2023 Other allergic rhinitis (ICD-10 - J30.89) 11/08/2023 Other chronic allergic conjunctivitis (ICD-10 - H10.45) Plan Of Treatment Next Appt Details Follow Up: 1 Week, Reason: Progress Notes * Armand HENDERSONDOB: [birth year] (44 yo F)Acc No.[id number]:11/08/2023 SCIT-Aeroallergen Patient: Jennifer Armand SWENSON Provider: Gautam Coronel MD :1980 A ge:43 Y S ex:Female Date:11/08/2023 Address:[address] [place], [place] [id number] Pcp:Ned Larry Subjective: * Chief Complaints: * 1 . SCIT - Traditional Schedule Allergy immunotherapy. * HPI: * Introduction: The patient is here for scheduled immunotherapy. Please see the attached specialty form regarding the specifics of the administration of these vaccines. As per our protocol, they must undergo a screening health questionnaire (medication changes, reaction(s) to last immunotherapy dose(s), current health status, ACT (if appropriate), self-injectable epinephrine on patient(?) and peak flow (if appropriate)). Also, the patient must wait in our office for 30 minutes after receiving the vaccine(s). Furthermore, every patient must have an epinephrine pen (self-injectable) with them at the time of administration--and carry if for the following 1.5 hours after they leave our office. The patient must also have taken their antihistamine the day of the injection, preferably 2 hours prior. The consent form for SCIT (subcutaneous immunotherapy) is on file. * Medical History: Objective: * Vitals: Assessment: * Assessment: 1. A llergic rhinitis due to pollen - J30.1 (Primary) 2 . A llergic rhinitis due to animal (cat) (dog) hair and dander - J30.81 3 . O ther allergic rhinitis - J30.89 4 . O ther chronic allergic conjunctivitis - H10.45 Plan: * Treatment: * Follow Up: 1 Week * Billing Information: * Visit Code: * Procedure Codes: 15877 IMMUNOTHERAPY INJECTIONS. * Electronic signature of Lady Coronel MD, FAAAAI on 11/29/2024 at 10:00 AM CDT Sign off status: Pending * Provider: Gautam Coronel MD Date: Generated for Yonny crow/Cuate/Jocyitting on: 10:00 AM CDT History and Physical Notes * HPI (History of Present Illness) Category Sub-Category Detail Notes Category Not es *Introduction The patient is here for scheduled immunotherapy. Please see the attached specialty form regarding the specifics of the administration of these vaccines. As per our protocol, they must undergo a screening health questionnaire (medication changes, reaction(s) to last immunotherapy dose(s), current health status, ACT (if appropriate), self-injectable epinephrine on patient(?) and peak flow (if appropriate)). Also, the patient must wait in our office for 30 minutes after receiving the vaccine(s). Furthermore, every patient must have an epinephrine pen (self-injectable) with them at the time of administration--and carry if for the following 1.5 hours after they leave our office. The patient must also have taken their antihistamine the day of the injection, preferably 2 hours prior. The consent form for SCIT (subcutaneous immunotherapy) is on file.
--- OUTSIDE RECORDS SUMMARY | 2023-12-06 12:30 | XMS_ITS ---
Author Organization [facility] [place] ([id number]) Address [address] [place] [address] Care Team Providers Care Communication Lecturer Name Role Phone Ned Larry Primary Care Provider Unavailab Prashant Pearson Unavailable [phone] Rehan Coronel Unavailable [phone] REASON FOR VISIT SCIT (Aeroallergen) Encounters Encounter Location Date Provider Diagnosis [facility] [place] [address] [place] [address] 12/06/2023 Rehan Coronel Plan Of Treatment No Information Progress Notes * Armand HENDERSONDOB: [birth year] (44 yo F)Acc No.[id number]:12/06/2023 SCIT-Aeroallergen Patient: Armand DICKSON Provider: Gautam Coronel MD :1980 A ge:43 Y S ex:Female Date:12/06/2023 Address:[address] [place], [place] [id number] Pcp:Ned Larry Subjective: * Chief Complaints: * 1 . SCIT (Aeroallergen). * Medical History: Objective: * Vitals: Assessment: Plan: * Treatment: * Billing Information: * Visit Code: * Procedure Codes: * Electronic signature of Lady Coronel MD, FAAAAI on 11/29/2024 at 10:00 AM CDT Sign off status: Pending * Provider: Gautam Coronel MD Date: Generated for Yonny crow/Cuate/Dave on: 10:00 AM CDT
--- NOTE | ~2024-11-29 | MMUS_ITS ---
EXAMINATION: MM diagnostic gladys LT w sayra, US breast LT limited INDICATION: 44-year old female; BI-RADS 0, callback from screening to evaluate left breast asymmetry. COMPARISON: 11/04/2024 TECHNIQUE: Digital breast tomosynthesis True lateral and spot compression CC and MLO views of the LEFT breast were obtained with computer-aided detection to assist in interpretation of the study. FINDINGS: There are scattered areas of fibroglandular density. The asymmetry of concern in the upper outer left breast effaces on spot compression views compatible with superimposition of fibroglandular tissue. LEFT BREAST ULTRASOUND FINDINGS: Targeted evaluation of the area of concern was completed. No suspicious solid or cystic mass seen. IMPRESSION: LEFT breast focal asymmetry of concern represents superimposition of fibroglandular tissue. RECOMMENDATION: Annual screening mammography in 12 months. BI-RADS 2, BENIGN Reviewed, dictated and finalized at location B. IMPRESSION: LEFT breast focal asymmetry of concern represents superimposition of fibrogland ular tissue. RECOMMENDATION: Annual screening mammography in 12 months. BI-RADS 2, BENIGN
--- OUTSIDE RECORDS SUMMARY | 2024-11-29 10:00 | XMS_ITS | Patient Health Record ---
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 Name Role Phone Ned Larry Primary Care Provider Unavailab bhupendra Barrowbella Prashant Unavailable [phone] HomerRehan Unavailable [phone] Allergies No Known Allergies Reason For Referral No Information Medications Medication SIG (Take, Route, Frequency, Duration) Notes Start Date End Date Status TRIAMCINOLONE ACETONIDE TOPICAL 0.1% 1 jimenez applied topically 3 times a day; Duration: 7 day(s) Active K2-45 45 mcg 1 cap(s) orally once a day Active VENTOLIN HFA 90 mcg/inh 2 puff(s) inhaled every 6 hours; Duration: 30 day(s) Active FEOSOL 200 mg 1 tab(s) orally once a day Active DHEA 10 mg 1 tab(s) orally 2 times a day Active MAGNESIUM CITRATE 100 mg 2 cap(s) orally once a day Active LINZESS 145 mcg 1 cap(s) orally once a day Active ADVAIR HFA CFC free 115 mcg-21 mcg/inh 2 puff(s) inhaled 2 times a day; Duration: 90 days Active ARMOUR THYROID 60 mg 1 tab(s) orally onc e a day Active AEROCHAMBER MDI SPACER - MOUTHPIECE (ADULT) N/A DIRECTED PO PER ASTHMA ACTION PLAN; Duration: 30 DAY(S) *Please review for potential replacement for e-prescription and drug interaction check* Active EpiPen 2-Samy 0.3 MG/0.3ML as directed intramuscularly once; Duration: 1 days Active Ventolin HFA 108 (90 Base) MCG/ACT 2 puff(s) inhaled every 6 hours; Duration: 30 day(s) Active DHEA 10 MG 1 tab(s) orally 2 times a day Active K2-45 45 MCG 1 cap(s) orally once a day Active Montelukast Sodium 10 MG 1 tab(s) orally once a day; Duration: 90 days Active Jasiel Allergy 180 MG 1 tab(s) orally once a day and 2 30 minutes before SCIT Active NASAL WASHES N/A DIRECTED INTRANASALLY NEEDED; Duration: 30 *Please review for potential replacement for e-prescription and drug interaction check* Active Famotidine 40 MG 1 tab(s) orally once a day, 30 mins before and after SCIT Active Triamcinolone Acetonide 0.1 % 1 jimenez applied topically 3 times a day; Duration: 7 day(s) Active Flonase Allergy Relief 50 MCG/ACT 1 spray in each nostril bid; Duration: 30 day(s) Active SIT (TRADITIONAL) VARIABLE PER SCHEDULE SC PER SCHEDULE; Duration: TO BE DETERMINED *Please review for potential replacement for e-prescription and drug interaction check* Active BUPROPION 150 mg/12 hours 1 tab(s) orally 2 times a day Active EPIPEN 2-SAMY 0.3 mg as directed intramuscularly once; Duration: 1 days Active D3 5000 intl units as directed orally once a day; Duration: 30 day(s) Active DULOXETINE 60 mg 1 cap(s) orally once a day Active MONTELUKAST SODIUM 10 mg 1 tab(s) orally once a day; Duration: 90 days Active JASIEL 24 HOUR ALLERGY 180 mg 1 tab(s) orally once a day and 2 30 minutes before SCIT Active FLONASE 50 mcg/inh 1 spray in each nostril bid; Duration: 30 day(s) Active buPROPion HCl ER (SR) 150 MG 1 tab(s) orally 2 times a day Active FAMOTIDINE 40 mg 1 tab(s) orally once a day, 30 mins before and after SCIT Active D3 5000 INTL UNITS DIRECTED ORALLY ONCE A DAY; Duration: 30 DAY(S) *Please review and pick correct strength-formulat ion from [employer] options. If intended option is not shown, discontinue and re-order from Quick Search* Active DULoxetine HCl 60 MG 1 cap(s) orally onc e a day Active Linzess 145 MCG 1 cap(s) orally once a day Active Feosol 200 MG 1 TAB(S) ORALLY ONCE A DAY *Please review and pick correct strength-formulat ion from [employer] options. If intended option is not shown, discontinue and re-order from Quick Search* Active Bandana Thyroid 60 MG 1 tab(s) orally onc e a day Active Magnesium Citrate 100 MG 2 cap(s) orally once a day Active Advair HFA 115-21 MCG/ACT 2 puff(s) inhaled 2 times a day; Duration: 90 days Active ALBUTEROL (EQV-PROAIR HFA) 90 MCG/INH INHALE 2 PUFFS BY MOUTH EVERY 6 HOURS; Duration: 25 *Please review for potential replacement for e-prescription and drug interaction check* Active Immunizations Vaccine Route Administration Date Status Comme nts NOC Pneumovax 23 IM Intramuscular 08/18/2020 Administered NOC Flucelevax Quadrivalent Unknown 03/05/2020 Refused NOC Flucelevax Quadrivalent Unknown 04/02/2020 Refused Social History Tobacco Use: Social History Observation Description Date Details (start date - stop date) Never Smoker NA - NA Smoking Smart Form: Question Answer Notes Are you a: never smoker Problems Problem Type SNOMED Code ICD Code Onset Dates Problem Status W/U Status Risk Notes Problem Information temporarily unavailable Hypothyroidism, unspecified (E03.9) Active confirmed Problem Information temporarily unavailable Major depressive disorder, recurrent, mild (F33.0) Active confirmed Problem Information temporarily unavailable Anxiety disorder, unspecified (F41.9) Active confirmed Problem Information temporarily unavailable Other chronic allergic conjunctivitis (H10.45) Active confirmed Problem Information temporarily unavailable Allergic rhinitis due to pollen (J30.1) Active confirmed Problem Information temporarily unavailable Allergic rhinitis due to animal (cat) (dog) hair and dander (J30.81) Active confirmed Problem Information temporarily unavailable Other allergic rhinitis (J30.89) Active confirmed Problem Information temporarily unavailable Moderate persistent asthma, uncomplicated (J45.40) Active confirmed Problem Information temporarily unavailable Cough (R05) Active confirmed Problem Information temporarily unavailable Allergic rhinitis due to animal (cat) (dog) hair and dander (J30.81) Active confirmed Problem Information temporarily unavailable Other chronic sinusitis (J32.8) Active confirmed Problem Information temporarily unavailable Allergy status to penicillin (Z88.0) Active confirmed Problem Information temporarily unavailable Vitamin D deficiency, unspecified (E55.9) Active confirmed Problem Information temporarily unavailable Dermatitis due to ingested food (L27.2) Active confirmed Problem Information temporarily unavailable Personal history of pneumonia (recurrent) (Z87.01) Active confirmed Problem Information temporarily unavailable Personal history of anaphylaxis (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 [address] [place] [phone] 12/05/2023 Rehan Coronel Allergic rhinitis du e to pollen J30.1 ; Allergic rhinitis due to animal (cat) (dog) hair and dander J30.81 ; Other allergic rhinitis J30.89 and Other chronic allergic conjunctivitis H10.45 [facility] [address] [facility] [address] [place] [phone] 12/28/2023 Rehan Coronel Allergic rhinitis du e to pollen J30.1 ; Allergic rhinitis due to animal (cat) (dog) hair and dander J30.81 ; Other allergic rhinitis J30.89 and Other chronic allergic conjunctivitis H10.45 [facility] [address] [place], [place] [address] [place] [phone] 01/23/2024 Rehan Coronel Allergic rhinitis du e to pollen J30.1 ; Allergic rhinitis due to animal (cat) (dog) hair and dander J30.81 ; Other allergic rhinitis J30.89 and Other chronic allergic conjunctivitis H10.[address] [address] 07/22/2024 Rehan Coronel Assessments Encounter Date Diagnosis (ICD Code) Assessment Notes Treatment Notes Treatment Clinical Notes Section Notes 12/05/2023 Allergic rhinitis due to pollen (ICD-10 - J30.1) 12/28/2023 Allergic rhinitis due to pollen (ICD-10 - J30.1) 01/23/2024 Allergic rhinitis due to pollen (ICD-10 - J30.1) 01/23/2024 Allergic rhinitis due to animal (cat) (dog) hair and dander (ICD-10 - J30.81) 12/28/2023 Allergic rhinitis due to animal (cat) (dog) hair and dander (ICD-10 - J30.81) 12/05/2023 Allergic rhinitis due to animal (cat) (dog) hair and dander (ICD-10 - J30.81) 12/05/2023 Other allergic rhinitis (ICD-10 - J30.89) 12/28/2023 Other allergic rhinitis (ICD-10 - J30.89) 01/23/2024 Other allergic rhinitis (ICD-10 - J30.89) 01/23/2024 Other chronic allergic conjunctivitis (ICD-10 - H10.45) 12/28/2023 Other chronic allergic conjunctivitis (ICD-10 - H10.45) 12/05/2023 Other chronic allergic conjunctivitis (ICD-10 - H10.45) Plan Of Treatment Pending Test Test Name Order Date STREPTOCOCCUS PNEUMONIAE IGG AB (23 SERO TYPES) 11/10/2020 STREPTOCOCCUS PNEUMONIAE IGG AB (23 SERO TYPES) 02/02/2021 STREPTOCOCCUS PNEUMONIAE IGG AB (23 SERO TYPES) 06/15/2021 CARDIO IQ(R) VITAMIN D, 25 HYDROXY 06/15 Insurance Providers Payer Name Payer Address Payer Phone Subscriber Number Group Number Insured Name Patient Relationship to Insured Coverage Start Date Coverage End Date [facility] [address] [place] [address] [id number] Armand Henderson Self - patient is the insured [employer] [address] [place] [address] [id number] Kiko Henderson Spouse - patient is the spouse of the insured Medical (General) History Medical History History ICD Code Gastro-esophageal reflux disease without esophagitis K21.9 Hypersomnia, unspecified G47.10 Hypothyroidism, unspecified E03.9 Major depressive disorder, recurrent, mi ld F33.0 Anxiety disorder, unspecified F41.9 Moderate persistent asthma, uncomplicate d J45.40 Allergic rhinitis due to pollen J30.1 Allergic rhinitis due to animal (cat) (d og) hair and dander J30.81 Other allergic rhinitis J30.89 Other chronic allergic conjunctivitis H1 0.45 Elevated blood-pressure reading, without diagnosis of hypertension R03.0 Surgical History Surgery Date(Month/Year) D&E 07/30/2014 Hospitalization History Reason Date(Month/Year) anaphylaxis 02/2020 anaphylaxis 01/2020
--- OUTSIDE RECORDS SUMMARY | 2024-11-29 10:00 | XMS_ITS | Clinical Summary ---
Author Organization [facility] [employer] Address [address] 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 This disclosure is being madepursuant to the Care Everywhere program and may not contain all information available regarding this patient. Last updated 17.[facility] [employer] Active Problems Problem Noted Date Diagnosed Date Premature rupture of membranes in , ant epartum 08/01/2014 Nuchal translucency of fetus on ultraso und 06/06/2014 Social History Tobacco Use Types Packs/Day Years Used Date Smoking Tobacco: Never Assessed Comments No Sex and Gender Information Value Date Recorded Sex Assigned at Not on file Legal Sex Female 12:19 PM CDT Gender Identity Not on file Sexual Orientation Not on file Plan of Treatment Health Maintenance Due Date Last Done Comments LIPID TESTING 1980 MAMMOGRAM 1980 HIV SCREENING 06/23/1995 HEPATITIS C SCREENING 06/18/1998 DTAP/TDAP/TD VACCINES (1 - Tdap) 06/23/1999 HEPATITIS B VACCINE (1 of 3 - 19+ 3-dose series) 06/23/1999 PAP SMEAR 2001 HPV VACCINE (1 - 3-dose SCDM series) 06/23/2007 DEPRESSION SCREENING 02/07/2024 COVID-19 VACCINE (1 - 2023-2 5 season) 2024 INFLUENZA VACCINE (#1) 2024 ZOSTER VACCINE (1 of 2) 2030 HIB VACCINE Aged Out No longer eligi ble based on patient's age to complete this topic MENINGOCOCCAL (Group B) VACC INE SHARED DECISION-MAKING Aged Out No longer eligibl e based on patient's age to complete this topic MENINGOCOCCAL GROUPS A/C/Y/W VACCINE Aged Out No longer eligible b ased on patient's age to complete this topic PNEUMOCOCCAL VACCINE Aged Out No long er eligible based on patient's age to complete this topic Insurance [facility] Member Subscriber Plan / Payer (Ef fective for All Dates) Name:Brina Henderson Member ID:Not on file Relation to Subscriber:Spouse Name:KORI HENDERSON Date of :1983 (Home) Address: [address] [place] [id number] Payer ID:Not on file Type:O Address: [address] SELF PAY NO INSURANCE Member Subscriber Plan / Payer (Ef fective for All Dates) Name:HendersonBrina Member ID:Not on file Relation to Subscriber:Not on file Name:SLIME HENDERSONDANGJAMIE Russ Subscriber ID:Not on file (Home) Address: [address] [place] [id number] Payer ID:Not on file Group ID:Not on file Type:Self Pay Address: [place], [place] [facility]
--- OUTSIDE RECORDS SUMMARY | 2024-11-29 10:01 | XMS_ITS | Patient Health Record ---
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 Name Role Phone Ned Larry DO Primary Care Provider Chanel Peres Unavailable [phone] Allergies Allergen (clinical drug ingredient) Drug/Non Drug Allergy documented on EMR Reaction Allergy Type Onset Date Status Information temporarily unavailable ANIMAL DANDER (uncoded) Unknown Allergy 03/16/2023 Active Information temporarily unavailable GRASS POLLEN (uncoded) Unknown Allergy 03/16/2023 Activ e Information temporarily unavailable GRASS POLLEN-PERENNIAL RYE, STANDARD (uncoded) Unknown Allergy 03/16/2023 Active Information temporarily unavailable POLLEN EXTRACTS (uncoded) Unknown Allergy 03/16/2023 Active Information temporarily unavailable RAGWEED POLLEN (uncoded) Unknown Allergy 03/16/2023 Active Information temporarily unavailable TREE AND SHRUB POLLEN (uncoded) Unknown Allergy 03/16/2023 Active Information temporarily unavailable WEED POLLEN (uncoded) Unknown Allergy 03/16/2023 Active Information temporarily unavailable Bee Pollen Unknown Drug Allergy 03/16/2023 Active Information temporarily unavailable Mold Unknown Allergy 03/16/2023 Active Results Component Value Reference Range Flag Notes UDT Reviewed date:07/17/2024 01:15:03 PM Interpretation: Performing Lab: Notes/Report: Amphetamine (AMP) p 0 - 1000 ng/ml Buprenorphine (BUP) n 0 - 10 ng/ml Oxazepam (BZO) n 0 - 300 ng/ml Cocaine (PONCHO) n 0 - 300 ng/ml Methamphetamine (mAMP) n 0 - 300 ng/ml Methylenedioxymethamphetamin e (MDMA) n 0 - 500 ng/ml Morphine (MOP) n 0 - 25 ng/ml Methadone (MTD) n 0 - 300 ng/ml Oxycodone (OXY) n 0 - 300 ng/ml THC n 0 - 50 ng/ml x n 0 - 1000 ng/ml x n 0 - 1000 ng/ml x n 0 - 300 ng/ml x n 0 - 300 ng/ml x n 0 - 300 ng/ml UDT Reviewed date:04/17/2024 02:04:38 PM Interpretation: Performing Lab: Notes/Report: Amphetamine (AMP) P 0 - 1000 ng/ml Buprenorphine (BUP) N 0 - 10 ng/ml Oxazepam (BZO) N 0 - 300 ng/ml Cocaine (PONCHO) N 0 - 300 ng/ml Methamphetamine (mAMP) N 0 - 300 ng/ml Methylenedioxymethamphetamin e (MDMA) N 0 - 500 ng/ml Morphine (MOP) N 0 - 25 ng/ml Methadone (MTD) N 0 - 300 ng/ml Oxycodone (OXY) N 0 - 300 ng/ml THC N 0 - 50 ng/ml x N 0 - 1000 ng/ml x N 0 - 1000 ng/ml x N 0 - 300 ng/ml x N 0 - 300 ng/ml x N 0 - 300 ng/ml DRUG MONITOR,AMPHETAMINE, QN , URINE ([id number]) Reviewed date:07/25/2024 11:16:27 AM Interpretation: Performing Lab:DON [facility] Deena-Sp [id number] [facility], [facility] [id number] Toney Zavaleta, Director - [id number] [facility] Notes/Report: FASTING: NO Amphetamine 1286 <250 ng/mL H medMATCH Amphetamine INCONSISTENT A Methamphetamine NEGATIVE <250 ng/mL Amphetamines Comments See Amphetamines Notes, LDT Notes Notes and Comments This drug testing is for medical treatment only. Analysis was performed as non-forensic testing and these results should be used only by healthcare providers to render diagnosis or treatment, or to monitor progress of medical conditions. Amphetamines Notes: Amphetamine detected is consistent with the use of the drug Amphetamine. Amphetamine can be a prescribed drug and is also a metabolite of methamphetamine. LDT Notes: Confirmation tests were developed and their analytical performance characteristics have been determined by [employer]. It has not been cleared or approved by the FDA. This assay has been validated pursuant to the CLIA regulations and is used for clinical purposes. medMATCH(R) enables providers to identify if drug use is consistent or inconsistent with a corresponding prescribed medication(s) list. Healthcare Providers needing Interpretation assistance, please contact us at [phone] ( ) M-F, 8am to 10pm EST PRESCRIBED DRUGS, medMATCH(R ) ([id number]) Reviewed date:07/25/2024 11:16:27 AM Interpretation: Performing Lab:DANNY, [facility][id number] [address] [employer], [id number] Wilman Silva MD Notes/Report: FASTING: NO medMATCH Summary Prescribed Prescribed Not Prescribed Consistent Inconsistent Inconsistent Amphetamine DRUG MONITOR,AMPHETAMINE, QN , URINE ([id number]) Reviewed date:04/25/2024 08:19:58 AM Interpretation: Performing Lab:Delfina OCHOA-Wood [id number] [facility] [id number] Toney Zavaleta, Director - [id number] [facility] [facility] Notes/Report: FASTING: NO Amphetamine 812 <250 ng/mL H medMATCH Amphetamine CONSISTENT Methamphetamine NEGATIVE <250 ng/mL Amphetamines Comments See Amphetamines Notes, LDT Notes Notes and Comments This drug testing is for medical treatment only. Analysis was performed as non-forensic testing and these results should be used only by healthcare providers to render diagnosis or treatment, or to monitor progress of medical conditions. Amphetamines Notes: Amphetamine detected is consistent with the use of the drug Amphetamine. Amphetamine can be a prescribed drug and is also a metabolite of methamphetamine. LDT Notes: Confirmation tests were developed and their analytical performance characteristics have been determined by [facility]. It has not been cleared or approved by the FDA. This assay has been validated pursuant to the CLIA regulations and is used for clinical purposes. medMATCH(R) enables providers to identify if drug use is consistent or inconsistent with a corresponding prescribed medication(s) list. Healthcare Providers needing Interpretation assistance, please contact us at [phone] ( ) M-F, 8am to 10pm EST PRESCRIBED DRUGS, medMATCH(R ) ([id number]) Reviewed date:04/25/2024 08:19:58 AM Interpretation: Performing Lab:KS, [facility]-[id number] [address] [place], [id number] Wilman Silva MD Notes/Report: FASTING: NO medMATCH Summary Prescribed Prescribed Not Prescribed Consistent Inconsistent Inconsistent Amphetamine Vyvanse(TM) Prescribed Drug 1 Amphetamine Prescribed Drug 2 Vyvanse(TM) Reason For Referral No Information Medications Medication SIG (Take, Route, Frequency, Duration) Notes Start Date End Date Status Amphetamine-Dextroamphetamin e 10 MG Tablet 1 tablet Orally once a day; Duration: 30 days As needed is in afternoon 10/18/2024 Active EPINEPHrine 0.3 MG/0.3ML Solution Auto-injector Injection 03/16/2023 Activ e Lisdexamfetamine Dimesylate 40 MG Capsule 1 capsule in the morning Orally Once a day; Duration: 30 days 10/18/2024 Active DULoxetine HCl 60 MG Capsule Delayed Release Particles 1 capsule Oral Once a day; Duration: 90 days 09/25/2024 Active DULoxetine HCl 30 MG Capsule Delayed Release Particles 1 capsule Orally Once a day; Duration: 90 days 09/25/2024 Active Fluticasone-Salmeterol 113-1 4 MCG/ACT Aerosol Powder Breath Activated Inhalation 03/16/2023 Active Advair HFA 115-21 MCG/ACT Aerosol Inhalation 03/16/2023 Active [employer]ING [employer]TAIN Thyroid 60 mg Tablet Oral 03/16/2023 Active Ferrous Sulfate 325 (65 Fe) MG Tablet Oral 03/16/2023 Active Albuterol Sulfate (2.5 MG/3ML) 0.083% Nebulization Solution Inhalation 03/16/2023 Active Immunizations Vaccine Route Administration Date Status Comme nts Influenza, seasonal, injecta ble, preservative free, 3 yrs and above Unknown 12/20/2012 Administered Pfizer BiontAstrum Solar Covid-19 Vac cine 2nd dose Unknown 09/06/2020 Administered Pfizer Biontech Covid-19 Vac cine 2nd dose Unknown 01/05/2021 Administered Social History Tobacco Use: Social History Observation Description Date Details (start date - stop date) Never Smoker NA - NA Sex Assigned At : Social History Observation Description Sex Assigned At Female Social History Miscellaneous: Social Info Question Answer Notes Advance Care Planning Are you your own decision-maker Yes Do you have Power of Packing Machine Inspector for Health or Medi iglesia? No Household: Social Info Question Answer Notes Household Number of adults in household: 1 adult daughter and 1 son Tobacco Use: Social Info Question Answer Notes Tobacco Control (Standard) Tobacco use: Nonsmoker Additional Details Category Social Info Options Details Miscellaneous: Occupation: Employed in [employer] Social History Migrated Social History Alcohol Intake: Occasional 03/10/2021,Tobacco Years: Former smoker 12/10/2019 Problems Problem Type SNOMED Code ICD Code Onset Dates Problem Status W/U Status Risk Notes Problem Information temporarily unavailable Major depressive disorder, recurrent severe without psychotic features (F33.2) Active confirmed Problem Information temporarily unavailable Generalized anxiety disorder (F41.1) Active confirmed Problem Information temporarily unavailable Attention-deficit hyperactivity disorder, combined type (F90.2) Active confirmed Vital Signs Heart Rate 101 /min 09/25/2024 Height-cm 160.02 cm 09/25/2024 Blood pressure diastolic 80 mm Hg 09/25/2024 Weight-kg 81.19 kg 09/25/2024 Height 63.00 in 09/25/2024 Blood pressure systolic 118 mm Hg 09/25/2024 Weight 179 lbs 09/25/2024 BMI 31.7 kg/m2 09/25/2024 Encounters Encounter Location Date Provider Diagnosis [email or web address] [address] [address] 01/08/2024 Chanel Moreno Major depressive disorder, recurrent severe without psychotic features F33.2 ; Attention-deficit hyperactivity disorder, combined type F90.2 and Generalized anxiety disorder F41.1 [email or web address] [address] [address] 04/17/2024 Chanel Moreno Attention-deficit hyperactivity disorder, combined type F90.2 ; Generalized anxiety disorder F41.1 ; Encounter for screening for cardiovascular disorders Z13.6 ; Major depressive disorder, recurrent severe without psychotic features F33.2 and Encounter for screening for depression Z13.31 [email or web address] [address] [place] [address] 07/17/2024 Chanel Kurilla Attention-deficit hyperactivity disorder, combined type F90.2 ; Generalized anxiety disorder F41.1 ; Major depressive disorder, recurrent severe without psychotic features F33.2 ; Encounter for screening for depression Z13.31 ; Negative depression screening Z13.31 and Encounter for screening for cardiovascular disorders Z13.6 [facility], [facility] [address] [place] [address] 09/25/2024 Chanel Kurilla Attention-deficit hyperactivity disorder, combined type F90.2 ; Generalized anxiety disorder F41.1 and Major depressive disorder, recurrent severe without psychotic features F33.2 [facility], [facility] [address] [place] [address] 12/22/2023 Chanel Kurilla Attention-deficit hyperactivity disorder, combined type F90.2 [facility], [facility] [address] [place] [address] 02/21/2024 Chanel Kurilla Attention-deficit hyperactivity disorder, combined type F90.2 [facility], [facility] [address] [place] [address] 03/19/2024 Chanel Kurilla Attention-deficit hyperactivity disorder, combined type F90.2 [facility], [facility] [address] [place] [address] 05/20/2024 Chanel Kurilla Attention-deficit hyperactivity disorder, combined type F90.2 [facility], [facility] [address] [place] [address] 06/19/2024 Chanel Kurilla Attention-deficit hyperactivity disorder, combined type F90.2 [facility], [facility] [address] [place] [address] 07/17/2024 Chanel Kurilla [facility], [facility] [address] [place] [address] 08/19/2024 Chanel Kurilla Attention-deficit hyperactivity disorder, combined type F90.2 [facility], [facility] [address] [place] [address] 09/17/2024 Chanel Kurilla Attention-deficit hyperactivity disorder, combined type F90.2 [facility], [facility] [address] [place] [address] 10/03/2024 Chanel Moreno Major depressive disorder, recurrent severe without psychotic features F33.2 [facility] [address] [place] [address] 10/18/2024 Chanel Moreno Attention-deficit hyperactivity disorder, combined type F90.2 Assessments Encounter Date Diagnosis (ICD Code) Assessment Notes Treatment Notes Treatment Clinical Notes Section Notes 12/22/2023 Attention-defici t hyperactivity disorder, combined type (ICD-10 - F90.2) 02/21/2024 Attention-defici t hyperactivity disorder, combined type (ICD-10 - F90.2) 03/19/2024 Attention-defici t hyperactivity disorder, combined type (ICD-10 - F90.2) 01/08/2024 Major depressive disorder, recurrent severe without psychotic features (ICD-10 - F33.2) SSRI/SNRI side effects discussed including but not limited to, gastric upset, nausea, vomiting, diarrhea and/or constipation, weight changes, sexual side effects including loss of libido, increased suicidal thoughts/behavi ors in children and young adults, and serotonin syndrome. 1. MDD stable -cont duloxetine 90mg daily 2. ADHD improved since Adderall booster dose increase -cont lisdexamfetamine 30mg daily in the morning -cont Adderall IR 10mg PRN in afternoons -UDT completed last month, will obtain next apt 3. TOSHA stable -cont duloxetine 90mg daily -encourage non-pharmaceutica l treatments including deep breathing, grounding exercises, physical activity, healthy diet. 04/17/2024 Attention-defici t hyperactivity disorder, combined type (ICD-10 - F90.2) ADHD Stimulant Education -Discussed with patient risk of misuse, abuse, and addiction before prescribing stimulant medicines. -Counseled not to share their prescribed stimulant with anyone else. -Educated patient will monitor during treatment: regularly assess and monitor them for signs and symptoms of nonmedical use, addiction, and potential diversion, which may be evidenced by more frequent renewal requests and medication metabolites absent from urine drug screens. -Random UDS (at least every three months or more frequently deemed by provider). -Per office policy, only prescribed to local pharmacy in [place], no early refills on control substance. 05/20/2024 Attention-defici t hyperactivity disorder, combined type (ICD-10 - F90.2) 06/19/2024 Attention-defici t hyperactivity disorder, combined type (ICD-10 - F90.2) 07/17/2024 Generalized anxiety disorder (ICD-10 - F41.1) 07/17/2024 Attention-defici t hyperactivity disorder, combined type (ICD-10 - F90.2) ADHD Stimulant Education -Discussed with patient risk of misuse, abuse, and addiction before prescribing stimulant medicines. -Counseled not to share their prescribed stimulant with anyone else. -Educated patient will monitor during treatment: regularly assess and monitor them for signs and symptoms of nonmedical use, addiction, and potential diversion, which may be evidenced by more frequent renewal requests and medication metabolites absent from urine drug screens. -Random UDS (at least every three months or more frequently deemed by provider). -Per office policy, only prescribed to local pharmacy in [place], no early refills on control substance. 08/19/2024 Attention-defici t hyperactivity disorder, combined type (ICD-10 - F90.2) 09/17/2024 Attention-defici t hyperactivity disorder, combined type (ICD-10 - F90.2) 09/25/2024 Attention-defici t hyperactivity disorder, combined type (ICD-10 - F90.2) ADHD Stimulant Education -Discussed with patient risk of misuse, abuse, and addiction before prescribing stimulant medicines. -Counseled not to share their prescribed stimulant with anyone else. -Educated patient will monitor during treatment: regularly assess and monitor them for signs and symptoms of nonmedical use, addiction, and potential diversion, which may be evidenced by more frequent renewal requests and medication metabolites absent from urine drug screens. -Random UDS (at least every three months or more frequently deemed by provider). -Per office policy, only prescribed to local pharmacy in [place], no early refills on control substance. 10/03/2024 Major depressive disorder, recurrent severe without psychotic features (ICD-10 - F33.2) 10/18/2024 Attention-defici t hyperactivity disorder, combined type (ICD-10 - F90.2) 09/25/2024 Generalized anxiety disorder (ICD-10 - F41.1) 07/17/2024 Major depressive disorder, recurrent severe without psychotic features (ICD-10 - F33.2) SSRI/SNRI side effects discussed including but not limited to, gastric upset, nausea, vomiting, diarrhea and/or constipation, weight changes, sexual side effects including loss of libido, increased suicidal thoughts/behavi ors in children and young adults, and serotonin syndrome. 01/08/2024 Attention-defici t hyperactivity disorder, combined type (ICD-10 - F90.2) 1. MDD stable -cont duloxetine 90mg daily 2. ADHD improved since Adderall booster dose increase -cont lisdexamfetamine 30mg daily in the morning -cont Adderall IR 10mg PRN in afternoons -UDT completed last month, will obtain next apt 3. TOSHA stable -cont duloxetine 90mg daily -encourage non-pharmaceutica l treatments including deep breathing, grounding exercises, physical activity, healthy diet. 04/17/2024 Generalized anxiety disorder (ICD-10 - F41.1) 04/17/2024 Major depressive disorder, recurrent severe without psychotic features (ICD-10 - F33.2) SSRI/SNRI side effects discussed including but not limited to, gastric upset, nausea, vomiting, diarrhea and/or constipation, weight changes, sexual side effects including loss of libido, increased suicidal thoughts/behavi ors in children and young adults, and serotonin syndrome. 01/08/2024 Generalized anxiety disorder (ICD-10 - F41.1) 1. MDD stable -cont duloxetine 90mg daily 2. ADHD improved since Adderall booster dose increase -cont lisdexamfetamine 30mg daily in the morning -cont Adderall IR 10mg PRN in afternoons -UDT completed last month, will obtain next apt 3. TOSHA stable -cont duloxetine 90mg daily -encourage non-pharmaceutica l treatments including deep breathing, grounding exercises, physical activity, healthy diet. 04/17/2024 Encounter for screening for cardiovascular disorders (ICD-10 - Z13.6) 07/17/2024 Encounter for screening for depression (ICD-10 - Z13.31) 09/25/2024 Major depressive disorder, recurrent severe without psychotic features (ICD-10 - F33.2) SSRI/SNRI side effects discussed including but not limited to, gastric upset, nausea, vomiting, diarrhea and/or constipation, weight changes, sexual side effects including loss of libido, increased suicidal thoughts/behavi ors in children and young adults, and serotonin syndrome. 07/17/2024 Negative depression screening (ICD-10 - Z13.31) 04/17/2024 Encounter for screening for depression (ICD-10 - Z13.31) 07/17/2024 Encounter for screening for cardiovascular disorders (ICD-10 - Z13.6) 01/08/2024 Other Stable, continue current medications. Refills sent in. Patient educated on all medications including potential benefits, side effects, risks. Educated on proper dosing schedule and importance of compliance. [place] report checked and consistent with prescription history, no controlled substance prescriptions from other providers. -Assessment and treatment plan reviewed with patient. -Compliance with treatment plan importance discussed. -Discussed the risks/benefits of this medication -Discussed medication side effects. -Contact office if symptoms worsen. -Discussed that it can take up to 6-8 weeks to see full therapeutic effects of psychotropic medications. -Crisis prevention hotline 988. 1. MDD stable -cont duloxetine 90mg daily 2. ADHD improved since Adderall booster dose increase -cont lisdexamfetamine 30mg daily in the morning -cont Adderall IR 10mg PRN in afternoons -UDT completed last month, will obtain next apt 3. TOSHA stable -cont duloxetine 90mg daily -encourage non-pharmaceutica l treatments including deep breathing, grounding exercises, physical activity, healthy diet. 04/17/2024 Other Stable, cont current medications. -all refills sent in today Patient educated on all medications including potential benefits, side effects, risks. Educated on proper dosing schedule and importance of compliance. [place] report checked and consistent with prescription history, no controlled substance prescriptions from other providers. UDT completed today -Assessment and treatment plan reviewed with patient. -Compliance with treatment plan importance discussed. -Discussed the risks/benefits of this medication -Discussed medication side effects. -Contact office if symptoms worsen. -Discussed that it can take up to 6-8 weeks to see full therapeutic effects of psychotropic medications. -Crisis prevention hotline 988. 07/17/2024 Other Increase duloxetine to 60mg BID for mood, anxiety Patient educated on all medications including potential benefits, side effects, risks. Educated on proper dosing schedule and importance of compliance. [place] report checked and consistent with prescription history, no controlled substance prescriptions from other providers. Discussed considering intermittent FMLA for work stress -Assessment and treatment plan reviewed with patient. -Compliance with treatment plan importance discussed. -Discussed the risks/benefits of this medication -Discussed medication side effects. -Contact office if symptoms worsen. -Discussed that it can take up to 6-8 weeks to see full therapeutic effects of psychotropic medications. -Crisis prevention hotline 988. 09/25/2024 Other Increase vyvanse to 40mg daily for adhd management Patient educated on all medications including potential benefits, side effects, risks. Educated on proper dosing schedule and importance of compliance. [place] report checked and consistent with prescription history, no controlled substance prescriptions from other providers. -Assessment and treatment plan reviewed with patient. -Compliance with treatment plan importance discussed. -Discussed the risks/benefits of this medication -Discussed medication side effects. -Contact office if symptoms worsen. -Discussed that it can take up to 6-8 weeks to see full therapeutic effects of psychotropic medications. -Crisis prevention hotline 988. Plan Of Treatment Next Appt Details Provider Name:Chanel Katiuska flores, 12/23/2024 09:45:00 AM, [address], [place], [address], Insurance Providers Payer Name Payer Address Payer Phone Subscriber Number Group Number Insured Name Patient Relationship to Insured Coverage Start Date Coverage End Date [facility] [address] [place] [address] [id number] BRINA ESCAMILLA Self - patient is the insured [facility] [employer] [address] [place] [address] [id number] KORI ESCAMILLA Spouse - patient is the spouse of the insured Medical (General) History Medical History History ICD Code Problems: Alcohol dependence Attention deficit hyperactivity disorder , combined type Attention deficit hyperactivity disorder , predominantly inattentive type Cocaine abuse Generalized anxiety disorder test negative Premenstrual dysphoric disorder Severe recurrent major depression withou t psychotic features , Surgical History Surgery Date(Month/Year) Other 03/19/2021 Sinus surgery 03/19/2021 Tubal ligation and ablation 2023
== END 2024-11-29 09:44 | disposition home or self-care (01) ==
LOC: CHSIMG 09:45
PROVIDERS: PCP Obstetrics & Gynecology; Visit Provider Obstetrics & Gynecology
DX: N64.89 Other specified disorders of breast (principal)
CPT/HCPCS: 76642; 77061; 77065; G0279